=== PATIENT | male | born 1960 | race Caucasian/White ===

== ENCOUNTER 2017-10-14 14:29 | Inpatient (IN) | payer OTHER ==
[~2017-10-14] VITALS: Ht 182.9 cm; Wt 138.4 kg
[~2017-10-14 14:29] MED LIST: DIAZ5TAB3 PO; DOCU-94 PO; GUAIFENESIN 600 MG TABCR PO PRN; LSN/2025 PO; OXYC-643 PO
--- NOTE | 2017-10-14 15:32 | EMERGENCY ROOM VISIT NOTE ---
History Report prepared by Rod: Stephon Gordon Under the Supervision of: Dr. Pro Coe D.O. First contact with patient: 15:19 Chief Complaint: SHORTNESS OF BREATH Stated Complaint: CANT BREATH, VERY DIZZY Nursing Triage Summary: Expiratory wheezes with forceful exhale. History of Present Illness The patient is a 57 year old male who presents to the Emergency Room with complaints of persistent shortness of breath and chest discomfort that began about 2 weeks ago. The patient describes his chest discomfort as "tightness" across his chest. The shortness of breath is worsened with walking/exertion. The patient has also been experiencing a persistent cough that makes him feel very short of breath. The patient did go to the [place] [facility] 2 weeks ago and had a chest x-ray/CT scan performed. These were both unremarkable. He does have a history of DVT in the upper extremity from a PICC line. Source of History: patient Onset: 2 weeks ago Position: chest Quality: other ("tightness" ) Timing: constant Modifying Factors (Worsening): exertion (walking) Associated Symptoms: + cough Review of Systems See HPI for pertinent positives & negatives. A total of 10 systems reviewed and were otherwise negative. Past Medical & Surgical Medical Problems: (1) DVT (deep venous thrombosis) (2) Pulmonary embolism (3) Respiratory failure with hypoxia Surgical Problems: (1) History of hand surgery Family History FH: HTN (hypertension) FH: diabetes mellitus FH: lung disease FH: seizures FHx: heart disease FHx: kidney disease Social History Smoking Status: Former Smoker Alcohol Use: none Drug Use: none Marital Status: Housing Status: lives with significant other Occupation Status: employed Current/Historical Medications Scheduled Ascorbic Acid (Vitamin C), 1,000 MG PO QAM Cholecalciferol (Vitamin D 1000 Unit), 2,000 INTER.UNIT PO BID Ropinirole (Requip), 3 MG PO HS Scheduled PRN Guaifenesin Ext Rel (Mucinex Ext Rel), 600 MG PO Q12 PRN for Cough Ibuprofen Tab (Advil), 400 MG PO Q6 PRN for Headache or Pain Allergies Coded Allergies: Nitroglycerin (Verified Adverse Reaction, Severe, "codes to medication in the past", 12/29/14) Physical Exam Vital Signs Date Time Temp Pulse Resp B/P (MAP) Pulse Ox O2 Delivery O2 Flow Rate FiO2 10/14/17 18:12 Room Air 10/14/17 17:42 95 3.0 10/14/17 17:34 86 22 124/68 88 Room Air 10/14/17 17:21 92 Room Air 10/14/17 17:21 92 Room Air 10/14/17 16:10 84 20 127/74 91 Room Air 10/14/17 15:57 87 10/14/17 14:36 97 Room Air 10/14/17 14:32 37.1 88 20 167/95 97 Room Air Physical Exam GENERAL: Patient is awake, alert, and in no acute distress. Patient is resting comfortably and showing no signs of anxiety EYES: The conjunctivae are clear. The pupils are round and reactive. EARS, NOSE, MOUTH AND THROAT: The nose is without any evidence of any deformity. Mucous membranes are moist tongue is midline NECK: The neck is nontender and supple. RESPIRATORY: Normal respiratory effort is noted there is no evidence of wheezing rhonchi or rales CARDIOVASCULAR: Regular rate and rhythm noted there no murmurs rubs or gallops normal S1 normal S2 GASTROINTESTINAL: The abdomen is soft. Bowel sounds are present in all quadrants. Abdomen is nontender MUSCULOSKELETAL/EXTREMITIES: There is no evidence of gross deformity full range of motion is noted in the hips and shoulders SKIN: There is no obvious evidence of any rash. There are no petechiae, pallor or cyanosis noted. NEUROLOGIC: Patient is awake alert and oriented x3 Medical Decision & Procedures ER Provider Diagnostic Interpretation: Radiology results as stated below per my review and radiologist interpretation: CHEST ONE VIEW PORTABLE HISTORY: 57 years-old Male EVALUATE RESPIRATORY DISTRESS.DYSPNEA acute respiratory distress COMPARISON: Chest radiograph 12/10/2014 TECHNIQUE: Portable AP view of the chest FINDINGS: Cardiomediastinal and hilar silhouettes are within normal limits. Atherosclerosis of the aorta. No pneumothorax, pleural effusion, focal airspace consolidation or overt pulmonary edema. Degenerative changes are seen within the shoulders and spine. IMPRESSION: No acute process. The above report was generated using voice recognition software. It may contain grammatical, syntax or spelling errors. Electronically signed by: Cory Murillo M.D. 10/14/2017 3:50 PM Dictated Date/Time: 10/14/2017 3:47 PM Laboratory Results 10/14/17 15:58 Red Blood Count 6.32, Mean Corpuscular Volume 61.9, Mean Corpuscular Hemoglobin 20.1, Mean Corpuscular Hemoglobin Concent 32.5, Mean Platelet Volume 9.5, Neutrophils (%) (Auto) 78.8, Lymphocytes (%) (Auto) 8.1, Monocytes (%) (Auto) 8.0, Eosinophils (%) (Auto) 3.3, Basophils (%) (Auto) 0.9, Neutrophils # (Auto) 6.13, Lymphocytes # (Auto) 0.63, Monocytes # (Auto) 0.62, Eosinophils # (Auto) 0.26, Basophils # (Auto) 0.07 10/14/17 15:58 Test 10/14/17 15:58 10/14/17 16:00 White Blood Count 7.78 K/uL (4.8-10.8) Red Blood Count 6.32 M/uL (4.7-6.1) Hemoglobin 12.7 g/dL (14.0-18.0) Hematocrit 39.1 % (42-52) Mean Corpuscular Volume 61.9 fL (80-100) Mean Corpuscular Hemoglobin 20.1 pg (25-34) Mean Corpuscular Hemoglobin Concent 32.5 g/dl (32-36) Platelet Count 251 K/uL (130-400) Mean Platelet Volume 9.5 fL (7.4-10.4) Neutrophils (%) (Auto) 78.8 % Lymphocytes (%) (Auto) 8.1 % Monocytes (%) (Auto) 8.0 % Eosinophils (%) (Auto) 3.3 % Basophils (%) (Auto) 0.9 % Neutrophils # (Auto) 6.13 K/uL (1.4-6.5) Lymphocytes # (Auto) 0.63 K/uL (1.2-3.4) Monocytes # (Auto) 0.62 K/uL (0.11-0.59) Eosinophils # (Auto) 0.26 K/uL (0-0.5) Basophils # (Auto) 0.07 K/uL (0-0.2) RDW Standard Deviation 35.5 fL (36.4-46.3) RDW Coefficient of Variation 16.2 % (11.5-14.5) Immature Granulocyte % (Auto) 0.9 % Immature Granulocyte # (Auto) 0.07 K/uL (0.00-0.02) Polychromasia 1+ Microcytosis PRESENT Prothrombin Time 9.7 SECONDS (9.0-12.0) Prothromb Time International Ratio 0.9 (0.9-1.1) Activated Partial Thromboplast Time 24.3 SECONDS (21.0-31.0) Partial Thromboplastin Ratio 0.9 Venous Blood pH 7.36 (7.36-7.41) Venous Blood Partial Pressure CO2 56 mmHg (38.0-50.0) Venous Blood Partial Pressure O2 33 mmHg Venous Blood HCO3 31 mmol/L Venous Blood Oxygen Saturation < 60.0 % Venous Blood Base Excess 4.1 mEq/L Anion Gap 5.0 mmol/L (3-11) Est Creatinine Clear Calc Drug Dose 124.5 ml/min Estimated GFR () 102.6 Estimated GFR (Non- 88.5 BUN/Creatinine Ratio 14.5 (10-20) Calcium Level 8.5 mg/dl (8.5-10.1) Total Bilirubin 0.4 mg/dl (0.2-1) Aspartate Amino Transf (AST/SGOT) 26 U/L (15-37) Alanine Aminotransferase (ALT/SGPT) 49 U/L (12-78) Alkaline Phosphatase 62 U/L (45-117) Troponin I < 0.015 ng/ml (0-0.045) Pro-B-Type Natriuretic Peptide 41 pg/ml (0-900) Total Protein 7.3 gm/dl (6.4-8.2) Albumin 3.6 gm/dl (3.4-5.0) Globulin 3.7 gm/dl (2.5-4.0) Albumin/Globulin Ratio 1.0 (0.9-2) Urine Color YELLOW Urine Appearance CLEAR (CLEAR) Urine pH 6.0 (4.5-7.5) Urine Specific [place] 1.015 (1.000-1.030) Urine Protein NEG (NEG) Urine Glucose (UA) NEG (NEG) Urine Ketones NEG (NEG) Urine Occult Blood NEG (NEG) Urine Nitrite NEG (NEG) Urine Bilirubin NEG (NEG) Urine Urobilinogen NEG (NEG) Urine Leukocyte Esterase NEG (NEG) Laboratory results per my review. Medications Administered Medications (Trade) Dose Ordered Sig/Trey Route Start Time Stop Time Status Last Admin Dose Admin Albuterol/ Ipratropium (Duoneb) 3 ml NOW STAT INH 10/14/17 18:17 10/14/17 18:18 DC 10/14/17 19:04 3 ML Acetaminophen (Tylenol Tab) 1,000 mg NOW STAT PO 10/14/17 18:26 10/14/17 18:27 DC 10/14/17 19:04 1,000 MG ECG Per My Interpretation Indication: SOB/dyspnea Rate (beats per minute): 86 Rhythm: sinus rhythm Findings: other (No PVCs, No MARGARITA/STD) Comparison ECG Date: 03/21/2015 Change: no significant change ED Course 1524: The patient was evaluated in room C8. A complete history and physical examination were performed. 1817: I discussed the case with Dr. Lexus CLEVELAND Hospitalist. He will evaluate the patient for further treatment. Medical Decision Differential diagnosis: Etiologies such as infections, reactive airway disease, pneumonia, pneumothorax , COPD, CHF, cardiac ischemia, pulmonary embolism, musculoskeletal, gastrointestinal, as well as others were entertained. Nursing notes reviewed. Patient's records from [facility] emergency department visit were also reviewed. The patient is a 57-year-old male who presented to the emergency department for an evaluation of worsening shortness of breath. The patient has a history of his obstructive sleep apnea. He is currently not using his CPAP machine. The patient has been having worsening shortness of breath symptoms over the last few weeks. The patient was found to have hypoxia at rest as well as with exertion. He was treated with a DuoNeb treatment in the emergency department. I discussed the patient's laboratory and radiographic studies with him. He was found to have a previous visit within the last 10 days that did have a normal CT the chest with no venous thromboembolic disease noted. I discussed patient' s condition with the on-call [facility] hospitalist. They have agreed to evaluate the patient in the emergency department for further management and disposition. The patient was treated with supplemental oxygen. On supplemental oxygen his oxygen saturation was acceptable. Medication Reconcilliation Current Medication List: was personally reviewed by me Blood Pressure Screening Patient's blood pressure: Normal blood pressure Consults Time Called: 1811 Consulting Physician: Dr. Lexus Grigsby Returned Call: 1817 I discussed the case with Dr. Moustafa Maksim - [facility] Hospitalist. He will evaluate the patient for further treatment. Impression Primary Impression: SOB (shortness of breath) Additional Impressions: Obstructive sleep apnea Hypoxia Scribe Attestation The scribe's documentation has been prepared under my direction and personally reviewed by me in its entirety. I confirm that the note above accurately reflects all work, treatment, procedures, and medical decision making performed by me. Departure Information Dispostion Being Evaluated By Hospitalist Referrals Praveen Kellogg (PCP) Patient Instructions My [facility] Health Problem Qualifiers
--- NOTE | 2017-10-14 15:51 | DIAGNOSTIC IMAGING REPORT ---
CHEST ONE VIEW PORTABLE HISTORY: 57 years-old Male EVALUATE RESPIRATORY DISTRESS.DYSPNEA acute respiratory distress COMPARISON: Chest radiograph 12/10/2014 TECHNIQUE: Portable AP view of the chest FINDINGS: Cardiomediastinal and hilar silhouettes are within normal limits. Atherosclerosis of the aorta. No pneumothorax, pleural effusion, focal airspace consolidation or overt pulmonary edema. Degenerative changes are seen within the shoulders and spine. IMPRESSION: No acute process. The above report was generated using voice recognition software. It may contain grammatical, syntax or spelling errors. Electronically signed by: Cory Murillo M.D. 10/14/2017 3:50 PM Dictated Date/Time: 10/14/2017 3:47 PM
[2017-10-14 16:07] LABS: BASO % 0.9 %; BASO ABS # 0.07 K/uL (0-0.2); EOS % 3.3 %; EOS ABS # 0.26 K/uL (0-0.5); HEMATOCRIT 39.1 % (42-52); HEMOGLOBIN 12.7 g/dL (14.0-18.0); IG# 0.07 K/uL (0.00-0.02); LYMPH % 8.1 %; LYMPH ABS # 0.63 K/uL (1.2-3.4); MEAN CELL VOLUME 61.9 fL (80-100); MEAN CORPUSCULAR HEMOGLOBIN 20.1 pg (25-34); MEAN CORPUSCULAR HGB CONC 32.5 g/dl (32-36); MEAN PLATELET VOLUME 9.5 fL (7.4-10.4); MONO ABS # 0.62 K/uL (0.11-0.59); NEUT % 78.8 %; NEUT ABS # 6.13 K/uL (1.4-6.5); PLATELET COUNT 251 K/uL (130-400); RED CELL DISTRIBUTION WIDTH CV 16.2 % (11.5-14.5); RED CELL DISTRIBUTION WIDTH SD 35.5 fL (36.4-46.3); WHITE BLOOD COUNT 7.78 K/uL (4.8-10.8)
[2017-10-14 16:17] LABS: INR 0.9 (0.9-1.1); PTT PATIENT 24.3 SECONDS (21.0-31.0)
[2017-10-14 16:35] LABS: ALBUMIN 3.6 gm/dl (3.4-5.0); ALT/SGPT 49 U/L (12-78); BLOOD UREA NITROGEN 14 mg/dl (7-18); CALCIUM 8.5 mg/dl (8.5-10.1); CARBON DIOXIDE 31 mmol/L (21-32); CREATININE 0.95 mg/dl (0.60-1.40); GLUCOSE 89 mg/dl (70-99); POTASSIUM 3.9 mmol/L (3.5-5.1); SODIUM 138 mmol/L (136-145)
[2017-10-14 16:40] LABS: ALKALINE PHOSPHATASE 62 U/L (45-117); AST/SGOT 26 U/L (15-37); TOTAL PROTEIN 7.3 gm/dl (6.4-8.2)
[2017-10-14] MEDS ORDERED: GUAI1TAB55 PO (16:44)
[2017-10-14] MEDS ORDERED: CHOL100027 PO (16:44)
[2017-10-14] MEDS ORDERED: IBUP-103 PO (16:44)
[2017-10-14] MEDS ORDERED: ASCO1CAP3 PO (17:52)
[2017-10-14] MEDS ORDERED: ROPI3TAB PO (17:52)
[2017-10-14] MEDS ORDERED: ALBUT/IPRATROP 3MG/0.5MG NEB 3 ML VIAL INH STA (18:17)
[2017-10-14] MEDS ORDERED: ACETAMINOPHEN 500 MG TAB PO STA (18:26)
[2017-10-14] MEDS ORDERED: ONDANSETRON INJ 2 MG/ML 2 ML VIAL IV PRN (19:15)
[2017-10-14] MEDS ORDERED: ALUMINUM/MAGNESIUM/SIMETH (MAALOX MAX) 30 ML UDC PO PRN (19:15)
[2017-10-14] MEDS ORDERED: ZOLPIDEM TARTRATE 5 MG TAB PO PRN ×2 (19:15)
[2017-10-14] MEDS ORDERED: POLYETHYLENE (MIRALAX) 17 GM PACK PO PRN (19:15)
[2017-10-14] MEDS ORDERED: ACETAMINOPHEN 325 MG TAB PO PRN (19:15)
[2017-10-14] MEDS ORDERED: MAGNESIUM HYDROXIDE SUSP 30 ML UDC PO PRN (19:15)
--- NOTE | 2017-10-14 19:37 | History and Physical ---
History & Physical Date & Time of Service: Oct 14, 2017 at 19:25 Chief Complaint: Cant Breath, Very Dizzy Primary Care Physician: Praveen Kellogg History of Present Illness Source: patient, family, hospital records 57-year-old man with no significant past medical history except for severe obstructive sleep apnea untreated as he is still waiting to get his BiPAP machine. He also has remote history of smoking. Patient started having shortness of breath and intermittent wheezing about 1 month ago. He also had cough and upper respiratory tract and congestion. His stated that intermittently he can fall asleep while he is sitting or talking. He snores very loudly at night and has episodes of apnea while he is sleeping. 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 He had to bump some mechanical gas into the engine that flared his shortness of breath significantly and wheezing. He went to [place] ED and extensive workup was done there including CT angiogram that ruled out pulmonary embolism. It showed thickened bronchial rodriguez. Patient then was discharged from the ED there home and continued to have progressively worsened shortness of breath. Yesterday and today his cough started producing greenish and yellowish sputum. He came to the ED for evaluation and he was found to have an oxygen saturation of 88% on room air. All his record was faxed from [place] and was reviewed. Associated symptoms are severe headache and tightness in the chest while he is having the shortness of breath which is much worse on exertion. Past medical history significant for obstructive sleep apnea, history of DVT as a result of a PICC line in his upper extremity, morbid obesity and remote history of smoking. Quit smoking 30 years ago currently chews tobacco Past Medical/Surgical History Medical Problems: (1) DVT (deep venous thrombosis) (2) DVT (deep venous thrombosis) (3) GI bleed (4) HTN (hypertension) (5) Pulmonary embolism (6) Respiratory failure with hypoxia Surgical Problems: (1) History of hand surgery Family History FH: HTN (hypertension) FH: diabetes mellitus FH: lung disease FH: seizures FHx: heart disease FHx: kidney disease Social History Smoking Status: Former Smoker Drug Use: none Marital Status: Occupational Status: employed Allergies Coded Allergies: Nitroglycerin (Verified Adverse Reaction, Severe, "codes to medication in the past", 12/29/14) Home Medications Scheduled Ascorbic Acid (Vitamin C), 1,000 MG PO QAM Cholecalciferol (Vitamin D 1000 Unit), 2,000 INTER.UNIT PO BID Ropinirole (Requip), 3 MG PO HS Scheduled PRN Guaifenesin Ext Rel (Mucinex Ext Rel), 600 MG PO Q12 PRN for Cough Ibuprofen Tab (Advil), 400 MG PO Q6 PRN for Headache or Pain Review of Systems Review of system Constitutional: No fever / no chills / no sweats / no weakness / no fatigue Eyes: no blurring of vision / no eye pain / no discharge / no redness ENT: no hearing loss / no epistaxis /no swallowing problems Respiratory: Severe shortness of breath mainly exertional, positive for wheezing , positive for productive cough Cardiovascular: no Chest pain / no lower extremity edema / no palpitation Abdomen: no pain / no nausea / no vomiting / no constipation Musculoskeletal: no joint pain / no muscle pain / no joint swelling Genitourinary: no dysuria / no incontinence / no urinary retention Neurologic: no focal weakness / no numbness/tingling / no ataxia Psychiatric: no depression symptoms / no anxiety / no insomnia Endocrine: no excessive thirst / no excessive urination Hematologic: no abnormal bleeding / no bruising / no LN swelling Skin: No rash / no pallor Physical Exam Vital Signs Date Time Temp Pulse Resp B/P (MAP) Pulse Ox O2 Delivery O2 Flow Rate FiO2 10/14/17 18:12 Room Air 10/14/17 17:42 95 3.0 10/14/17 17:34 86 22 124/68 88 Room Air 10/14/17 17:21 92 Room Air 10/14/17 17:21 92 Room Air 10/14/17 16:10 84 20 127/74 91 Room Air 10/14/17 15:57 87 10/14/17 14:36 97 Room Air 10/14/17 14:32 37.1 88 20 167/95 97 Room Air Physical examination General patient appears to be comfortable, not in acute distress, morbidly obese HEENT: Atraumatic , normocephalic /no jaundice /no pallor /anicteric /no dry mucous membrane /normal external ear inspection Neck: Supple /no swelling /central trach Heart: S1/S2 normal/regular rate and rhythm/no gallop /no rub /no murmur Lungs: Decreased air entry bilaterally, bilateral wheezing and scattered rhonchi. Abdomen: Soft/nontender/no guarding/no rebound/no organomegaly/no pulsatile mass Musculoskeletal: No swelling/no edema/no tenderness/normal range of motion Neuro exam: Awake alert oriented 3/cranial nerves II through XII appear to be intact/sensation intact/moves all extremities/no abnormal movements Psychiatric evaluation: No depressed mood/normal affect Skin: No rash on exposed skin area/no erythema Extremity: Normal pulse/no pitting edema/no clubbing or cyanosis Endocrine/lymphatic: No obvious lymphadenopathy /no lymphedema Diagnostics Laboratory Results Results Past 24 Hours Test 10/14/17 15:58 10/14/17 16:00 Range/Units White Blood Count 7.78 4.8-10.8 K/uL Red Blood Count 6.32 4.7-6.1 M/uL Hemoglobin 12.7 14.0-18.0 g/dL Hematocrit 39.1 42-52 % Mean Corpuscular Volume 61.9 80-100 fL Mean Corpuscular Hemoglobin 20.1 25-34 pg Mean Corpuscular Hemoglobin Concent 32.5 32-36 g/dl Platelet Count 251 130-400 K/uL Mean Platelet Volume 9.5 7.4-10.4 fL Neutrophils (%) (Auto) 78.8 % Lymphocytes (%) (Auto) 8.1 % Monocytes (%) (Auto) 8.0 % Eosinophils (%) (Auto) 3.3 % Basophils (%) (Auto) 0.9 % Neutrophils # (Auto) 6.13 1.4-6.5 K/uL Lymphocytes # (Auto) 0.63 1.2-3.4 K/uL Monocytes # (Auto) 0.62 0.11-0.59 K/uL Eosinophils # (Auto) 0.26 0-0.5 K/uL Basophils # (Auto) 0.07 0-0.2 K/uL RDW Standard Deviation 35.5 36.4-46.3 fL RDW Coefficient of Variation 16.2 11.5-14.5 % Immature Granulocyte % (Auto) 0.9 % Immature Granulocyte # (Auto) 0.07 0.00-0.02 K/uL Polychromasia 1+ Microcytosis PRESENT Prothrombin Time 9.7 9.0-12.0 SECONDS Prothromb Time International Ratio 0.9 0.9-1.1 Activated Partial Thromboplast Time 24.3 21.0-31.0 SECONDS Partial Thromboplastin Ratio 0.9 Venous Blood pH 7.36 7.36-7.41 Venous Blood Partial Pressure CO2 56 38.0-50.0 mmHg Venous Blood Partial Pressure O2 33 mmHg Venous Blood HCO3 31 mmol/L Venous Blood Oxygen Saturation < 60.0 % Venous Blood Base Excess 4.1 mEq/L Sodium Level 138 136-145 mmol/L Potassium Level 3.9 3.5-5.1 mmol/L Chloride Level 102 98-107 mmol/L Carbon Dioxide Level 31 21-32 mmol/L Anion Gap 5.0 3-11 mmol/L Blood Urea Nitrogen 14 7-18 mg/dl Creatinine 0.95 0.60-1.40 mg/dl Est Creatinine Clear Calc Drug Dose 124.5 ml/min Estimated GFR () 102.6 Estimated GFR (Non- 88.5 BUN/Creatinine Ratio 14.5 10-20 Random Glucose 89 70-99 mg/dl Calcium Level 8.5 8.5-10.1 mg/dl Total Bilirubin 0.4 0.2-1 mg/dl Aspartate Amino Transf (AST/SGOT) 26 15-37 U/L Alanine Aminotransferase (ALT/SGPT) 49 12-78 U/L Alkaline Phosphatase 62 45-117 U/L Troponin I < 0.015 0-0.045 ng/ml Pro-B-Type Natriuretic Peptide 41 0-900 pg/ml Total Protein 7.3 6.4-8.2 gm/dl Albumin 3.6 3.4-5.0 gm/dl Globulin 3.7 2.5-4.0 gm/dl Albumin/Globulin Ratio 1.0 0.9-2 Urine Color YELLOW Urine Appearance CLEAR CLEAR Urine pH 6.0 4.5-7.5 Urine Specific [place] 1.015 1.000-1.030 Urine Protein NEG NEG Urine Glucose (UA) NEG NEG Urine Ketones NEG NEG Urine Occult Blood NEG NEG Urine Nitrite NEG NEG Urine Bilirubin NEG NEG Urine Urobilinogen NEG NEG Urine Leukocyte Esterase NEG NEG Diagnostic Radiology CTA was reviewed done at [place] 10 days ago showed bronchial wall thickening no pulmonary embolus Impression Assessment and Plan 57-year-old man with past medical history of upper extremity DVT secondary to PICC line, morbid obesity, severe obstructive sleep apnea untreated, remote history of tobacco abuse. Presented to the ED with progressive shortness of breath and productive cough. Assessment Acute respiratory failure with hypoxemia secondary to below Multifactorial pulmonary disease, COPD exacerbation new diagnosis, obesity hypoventilation syndrome, severe obstructive sleep apnea with suspected pulmonary hypertension Subacute bacterial bronchitis Morbid obesity History of passing out last was 1 year ago daytime somnolence secondary to obstructive sleep apnea Plan Admit patient to telemetry Start patient on bronchodilators, Xopenex/Atrovent 0.63 inhalation nebulizer 4 times daily Start patient on steroids, Solu-Medrol 60 mg IV every 6 hours Chest imaging reviewed, showed no active pneumonia but likely bacterial bronchitis EKG reviewed, no QTc prolongation, will start patient on azithromycin 500 mg IV daily which will have also anti-inflammatory benefit for COPD Add probiotic for C. difficile prevention Pulmonary consultation if no improvement as needed Pepcid for GI prophylaxis Heparin subcu for DVT prophylaxis We will order nocturnal pulse ox monitoring Patient will need pulmonary function test in 6 weeks after resolution Resuscitation Status VTE Prophylaxis Will order VTE Prophylaxis: Yes
[2017-10-14 20:30] VITALS: BP 155/82; PULSE 84; TEMP 36.9; O2SAT 95; Ht 182.9 cm; Wt 138.4 kg
[2017-10-14] MEDS ORDERED: LEVALBUTEROL/IPRATROPIUM NEB INH SCH (21:00)
[2017-10-14] MEDS: AZITHROMYCIN IV 500 MG in DEXTROSE 5% 250ML 250 ML IV SCH (21:22)
[2017-10-14] MEDS: METHYLPREDNISOLONE IV 60 MG in SYRINGE 0 ML IV SCH (21:22)
[2017-10-14] MEDS: ROPINIROLE HCL 1 MG TAB PO SCH (21:23)
[2017-10-14 21:35] VITALS: PULSE 86; O2SAT 95
[2017-10-14] MEDS: IPRATROPIUM BROMIDE NEB SOLN 0.02% 2.5 ML VIAL INH SCH (21:35)
[2017-10-14] MEDS: LEVALBUTEROL 0.63MG/3 ML NEB INH SCH (21:35)
[2017-10-14] MEDS: HEPARIN SOD 5000 UNIT/0.5 ML CARP SQ SCH (22:02)
[2017-10-14 23:53] VITALS: BP 107/69; PULSE 77; TEMP 36.3; O2SAT 90
[2017-10-15] VITALS (13 sets, daily range): BP systolic 109–169; BP diastolic 65–98; PULSE 71–99; TEMP 35.8–37.4; O2SAT 90–99
[2017-10-15] MEDS ORDERED: PNEUMOCOCCAL POLYSACCHARIDES 25 MCG/0.5 ML VIAL/SYR IM. ONE (00:30)
[2017-10-15] MEDS ORDERED: PNEUMOCOCCAL ADMINISTRATION CHARGE ONE (00:30)
[2017-10-15] MEDS ORDERED: INFLUENZA ADMINISTRATION CHARGE ONE (00:30)
[2017-10-15] MEDS ORDERED: INFLUENZA VIRUS QUAD VACCINE 0.5 ML SYR IM. ONE (00:30)
[2017-10-15] MEDS: METHYLPREDNISOLONE IV 60 MG in SYRINGE 0 ML IV SCH ×4 (02:49→20:37)
[2017-10-15] MEDS: HEPARIN SOD 5000 UNIT/0.5 ML CARP SQ SCH ×3 (05:50→20:38)
[2017-10-15] MEDS: LEVALBUTEROL 0.63MG/3 ML NEB INH SCH ×3 (06:59→20:49)
[2017-10-15] MEDS: IPRATROPIUM BROMIDE NEB SOLN 0.02% 2.5 ML VIAL INH SCH ×3 (06:59→20:49)
[2017-10-15] MEDS: BUDESONIDE 0.5 MG/2 ML VIAL (PULMICORT) INH SCH ×2 (06:59→20:49)
[2017-10-15 07:21] LABS: BASO % 0.8 %; BASO ABS # 0.05 K/uL (0-0.2); HEMATOCRIT 38.5 % (42-52); HEMOGLOBIN 12.6 g/dL (14.0-18.0); IG# 0.04 K/uL (0.00-0.02); LYMPH ABS # 0.45 K/uL (1.2-3.4); MEAN CELL VOLUME 61.3 fL (80-100); MEAN CORPUSCULAR HEMOGLOBIN 20.1 pg (25-34); MEAN CORPUSCULAR HGB CONC 32.7 g/dl (32-36); MEAN PLATELET VOLUME 9.2 fL (7.4-10.4); MONO % 1.7 %; MONO ABS # 0.11 K/uL (0.11-0.59); NEUT % 89.9 %; NEUT ABS # 5.74 K/uL (1.4-6.5); PLATELET COUNT 251 K/uL (130-400); RED CELL DISTRIBUTION WIDTH CV 16.3 % (11.5-14.5); RED CELL DISTRIBUTION WIDTH SD 34.9 fL (36.4-46.3); WHITE BLOOD COUNT 6.39 K/uL (4.8-10.8)
[2017-10-15 07:57] LABS: ALBUMIN 3.5 gm/dl (3.4-5.0); CREATININE 0.85 mg/dl (0.60-1.40)
[2017-10-15 08:00] LABS: TOTAL PROTEIN 7.3 gm/dl (6.4-8.2)
[2017-10-15 09:26] LABS: HEMOGLOBIN A1C 5.8 % (4.5-5.6)
[2017-10-15] MEDS ORDERED: PERFLUTREN LIPID MICROSPHERE (DEFINITY) IV ONE (13:34)
--- NOTE | 2017-10-15 14:31 | ECHOCARDIOGRAM REPORT ---
*NOTICE TO RECEIVING [employer] This information is strictly Confidential and protected under [place] law. [place] law prohibits you from making any further disclosure of this information unless further disclosure is expressly permitted by the written consent of the person to whom it pertains or is authorized by law. A general authorization for the release of medical or other information is not sufficient for this purpose. Hospital accepts no responsibility if the information is made available to any other person, INCLUDING THE PATIENT. Interpretation Summary * Name: BONG GORDON Study Date: 10/15/2017 12:52 PM BP: 169/79 mmHg * Patient Location: .MED\S\N275\S\2 HR: 93 * : 1960 (M/d/yyyy) Gender: Male Height: 72 in * Age: 57 yrs Ethnicity: CA Weight: 303 lb * Ordering Physician: Boubacar Prescott * Referring Physician: Self, Referred * Performed By: Nel Carlos RDCS * * Reason For Study: CHF * BSA: 2.5 m2 * -- Conclusions -- * 1. Left ventricle not well visualized. Left ventricle appears grossly normal in size with grossly normal systolic function. Cannot estimate EF. There are no visualized wall motion abnormalities, but cannot exclude wall motion abnormalities given poor image quality. No significant left ventricular hypertrophy visualized. No apical thrombus visualized. * 2. Right ventricle appears dilated when visualized. * 3. Valves were not well visualized. No aortic stenosis. * 4. Poor image quality, somewhat enhanced with IV Definity. * 5. No prior study available for comparison. Procedure Details * A contrast injection of Definity was performed to improve assessment of LV function. * Contrast was injected into an intravenous site in the left arm. * One vial of Definity ultrasound contrast was diluted in normal saline to a total volume of 10 ml. A total of '2' ml of solution was administered during imaging. * Lot # [id number] of Definity utilized for procedure. * Expiration date 1 SEP 13. * The attending nurse who injected the contrast agent was JG HAMPTON RN. Left Ventricle * Left ventricle not well visualized. Left ventricle appears grossly normal in size with grossly normal systolic function. Cannot estimate EF. There are no visualized wall motion abnormalities, but cannot exclude wall motion abnormalities given poor image quality. No significant left ventricular hypertrophy visualized. No apical thrombus visualized. Right Ventricle * The right ventricle is not well visualized. * Right ventricle appears dilated when visualized. Atria * The left atrium is not well visualized. * Right atrium not well visualized. Mitral Valve * The mitral valve is not well visualized. * There is no mitral valve stenosis. * Significant mitral regurgitation is absent. Tricuspid Valve * The tricuspid valve is not well visualized. Aortic Valve * The aortic valve is not well visualized. * No hemodynamically significant valvular aortic stenosis. * There is no significant aortic regurgitation. Pulmonic Valve * The pulmonary valve is inadequately visualized, but the Doppler data is adequate for interpretation. * There is no pulmonic valvular stenosis. * There is no significant pulmonary regurgitation. Great Vessels * The aortic root is normal size. Pericardium/Pleural * There is no pericardial effusion. Great Vessels * IVC not well visualized. MMode 2D Measurements and Calculations LVIDd 5.0 cm EDV(Teich) 115.5 ml EDV(cubed) 121.3 ml Ao root diam 3.8 cm Ao root area 11.2 cm\S\2 asc Aorta Diam 3.3 cm Doppler Measurements and Calculations MV E max fatuma 70.8 cm/sec MV A max fatuma 100.4 cm/sec MV E/A 0.71 Ao V2 max 124.1 cm/sec Ao max PG 6.2 mmHg Ao max PG (full) 2.8 mmHg LV V1 max PG 3.4 mmHg LV V1 max 92.2 cm/sec
[2017-10-15] MEDS: ROPINIROLE HCL 1 MG TAB PO SCH (20:37)
[2017-10-15] MEDS: AZITHROMYCIN IV 500 MG in DEXTROSE 5% 250ML 250 ML IV SCH (20:37)
--- NOTE | 2017-10-15 21:38 | Progress Note ---
Subjective Date of Service: Oct 15, 2017. 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 consultant , review of inpatient medication list Pain: no pain PO Intake: adequate Voiding: no voiding problems patient reports feeling a little better today with Solu Medrol reviewed recent events, has been experiencing cough and shortness of breath for several weeks was in the [place] ED on 10/05, had CTA chest that showed diffuse interstitial changes, no PE, no consolidation, CXR without acute process, EKG with prolonged MT patient states that he has been short of breath for a long time, mostly on exertion says he has gained 20lbs over the past month, no edema noted more recently 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, two 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 co-workers have gone to the hospital for acute dyspnea he does not smoke, still chews tobacco he has never had PFT reviewed work up here, had normal CXR, EKG with sinus and 1st degree AV block on the monitor he had what appeared to be a rate induced bundle branch block checked echo, was essentially normal but had difficulty visualizing heart has sleep apnea but has not gotten his CPAP at home, had a sleep study months ago has been snoring for years has had several stress testes in the past, two heart caths, never needed a stent , CAD was 30-35% according to patient Problem List Medical Problems: (1) Hypoxia Status: Acute (2) Obstructive sleep apnea Status: Acute (3) SOB (shortness of breath) Status: Acute Review of Systems Constitutional: + weakness, + fatigue Respiratory: + cough, + sputum, + wheezing, + shortness of breath, + dyspnea on exertion, + problem reported (heavy snoring) Cardiac: No chest pain, No edema Musculoskeletal: + joint pain (diffuse, neck, lower back, bilateral shoulders) All Other Systems: Reviewed and Negative Medications Current Inpatient Medications Medications (Trade) Dose Ordered Sig/Trey Route Start Time Stop Time Status Last Admin Dose Admin Guaifenesin (Mucinex Contr Rel Tab) 600 mg Q12 PRN PO 10/14/17 08:45 11/13/17 08:44 Ropinirole HCl (Requip Tab) 3 mg HS PO 10/14/17 21:00 11/13/17 20:59 10/15/17 20:37 3 MG Heparin Sodium (Porcine) (Heparin Sq 5000 Unit/0.5ml) 5,000 unit Q8 SQ 10/14/17 22:00 11/13/17 21:59 10/15/17 20:38 5,000 UNIT Acetaminophen (Tylenol Tab) 650 mg Q4H PRN PO 10/14/17 19:15 11/13/17 19:14 Al Hydrox/Mg Hydrox/Simethicone (Maalox Max Susp) 15 ml Q4H PRN PO 10/14/17 19:15 11/13/17 19:14 Magnesium Hydroxide (Milk Of Magnesia Susp) 30 ml Q12H PRN PO 10/14/17 19:15 11/13/17 19:14 Zolpidem Tartrate (Ambien Tab) 5 mg HSZ PRN PO 10/14/17 19:15 11/13/17 19:14 Ondansetron HCl (Zofran Inj) 4 mg Q6H PRN IV 10/14/17 19:15 11/13/17 19:14 Polyethylene (Miralax Powder Packet) 17 gm DAILY PRN PO 10/14/17 19:15 11/13/17 19:14 Methylprednisolone Sodium Succinate 60 mg/Syringe 0.96 ml @ 1.5 mls/min Q6H IV 10/14/17 21:00 11/13/17 20:59 10/15/17 20:37 1.5 MLS/MIN Azithromycin 500 mg/Dextrose 255 ml @ 125 mls/hr Q24H IV 10/14/17 21:00 10/21/17 20:59 10/15/17 20:37 125 MLS/HR Ipratropium [place] (Atrovent 0.02% 0.5MG/2.5ML Neb) 0.5 mg Q6R INH 10/14/17 21:00 11/13/17 20:59 10/15/17 20:49 0.5 MG Levalbuterol (Xopenex 0.63 Mg/ 3 Ml Neb) 0.63 mg Q6R INH 10/14/17 21:00 11/13/17 20:59 10/15/17 20:49 0.63 MG Budesonide (Pulmicort Respules 0.5MG/ 2ML Neb Soln) 0.5 mg BIDR INH 10/15/17 08:00 11/14/17 07:59 10/15/17 20:49 0.5 MG Objective Vital Signs Date Time Temp Pulse Resp B/P (MAP) Pulse Ox O2 Delivery O2 Flow Rate FiO2 10/15/17 20:49 91 20 92 Room Air 10/15/17 19:47 35.8 99 20 135/69 (91) 93 Room Air 10/15/17 16:00 93 Room Air 10/15/17 14:34 95 18 93 Room Air 10/15/17 14:31 36.8 94 18 163/98 (119) 99 Room Air 10/15/17 12:02 96 Nasal Cannula 10/15/17 11:26 37.4 92 18 169/79 (109) 93 Room Air 10/15/17 08:01 96 Nasal Cannula 10/15/17 07:17 36.6 96 70 124/69 (87) 96 Nasal Cannula 1.0 10/15/17 06:59 71 18 94 Nasal Cannula 2.0 10/15/17 04:34 37.1 73 16 151/85 (107) 90 Nasal Cannula 1.0 10/15/17 04:00 90 Nasal Cannula 2.0 10/15/17 00:00 Room Air 10/14/17 23:53 36.3 77 16 107/69 (82) 90 Room Air 10/14/17 21:35 86 20 95 Room Air Physical Exam General Appearance: no apparent distress, + obese Eyes: normal inspection, EOMI, sclerae normal ENT: normal ENT inspection, hearing grossly normal, pharynx normal Neck: supple, no adenopathy, no JVD, trachea midline Respiratory/Chest: chest non-tender, lungs clear, normal breath sounds, no respiratory distress, no accessory muscle use Cardiovascular: regular rate, rhythm, no edema, no gallop, no JVD, no murmur Abdomen: normal bowel sounds, non tender, soft, no organomegaly Extremities: normal range of motion, non-tender, normal inspection, no pedal edema, no calf tenderness, normal capillary refill, pelvis stable Neurologic/Psychiatric: 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 nml as tested, no motor/sensory deficits, alert, normal mood/affect, oriented x 3 Skin: + pertinent finding (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) Laboratory Results Last 24 Hours Test 10/15/17 01:07 10/15/17 07:11 10/15/17 07:12 10/15/17 12:47 Troponin I < 0.015 ng/ml < 0.015 ng/ml < 0.015 ng/ml Sodium Level 135 mmol/L Potassium Level 4.0 mmol/L Chloride Level 100 mmol/L Carbon Dioxide Level 28 mmol/L Anion Gap 7.0 mmol/L Blood Urea Nitrogen 12 mg/dl Creatinine 0.85 mg/dl Est Creatinine Clear Calc Drug Dose 137.7 ml/min Estimated GFR () 112.1 Estimated GFR (Non- 96.7 BUN/Creatinine Ratio 13.8 Random Glucose 151 mg/dl Estimated Average Glucose 120 mg/dl Hemoglobin A1c 5.8 % Calcium Level 9.0 mg/dl Magnesium Level 2.3 mg/dl Total Bilirubin 0.5 mg/dl Aspartate Amino Transf (AST/SGOT) 24 U/L Alanine Aminotransferase (ALT/SGPT) 47 U/L Alkaline Phosphatase 57 U/L Total Protein 7.3 gm/dl Albumin 3.5 gm/dl Globulin 3.8 gm/dl Albumin/Globulin Ratio 0.9 White Blood Count 6.39 K/uL Red Blood Count 6.28 M/uL Hemoglobin 12.6 g/dL Hematocrit 38.5 % Mean Corpuscular Volume 61.3 fL Mean Corpuscular Hemoglobin 20.1 pg Mean Corpuscular Hemoglobin Concent 32.7 g/dl Platelet Count 251 K/uL Mean Platelet Volume 9.2 fL Neutrophils (%) (Auto) 89.9 % Lymphocytes (%) (Auto) 7.0 % Monocytes (%) (Auto) 1.7 % Eosinophils (%) (Auto) 0.0 % Basophils (%) (Auto) 0.8 % Neutrophils # (Auto) 5.74 K/uL Lymphocytes # (Auto) 0.45 K/uL Monocytes # (Auto) 0.11 K/uL Eosinophils # (Auto) 0.00 K/uL Basophils # (Auto) 0.05 K/uL RDW Standard Deviation 34.9 fL RDW Coefficient of Variation 16.3 % Immature Granulocyte % (Auto) 0.6 % Immature Granulocyte # (Auto) 0.04 K/uL Polychromasia 1+ Microcytosis PRESENT Lactic Acid Level 2.2 mmol/L Test 10/15/17 18:55 Troponin I < 0.015 ng/ml Assessment and Plan 57-year-old man with past medical history of upper extremity DVT secondary to PICC line, morbid obesity, severe obstructive sleep apnea untreated, remote history of tobacco abuse. Presented to the ED with progressive shortness of breath and productive cough. - Acute dyspnea on chronic dyspnea suspect acute bronchitis or asthma, does not carry a diagnosis of asthma or COPD because he has never had PFT breathing better since admission, lungs clear, minimal cough will continue Solu Medrol 60mg q6, taper tomorrow continue Azithromycin, needed 5 doses of 500mg continue Pulmicort, nebulizers no evidence of heart failure on echo or on exam no PE on CTA chest from 10/05 done in [place] ED possible that the fumes he inhaled triggered an asthma attack or bronchitis would benefit from PFT as outpatient once he recovers from this attack - LUIS: currently untreated, needs to get CPAP at home saw a sleep doctor in [place] - Morbid obesity: counseled on weight loss could have obesity hypoventilation - H/o non-obstructive CAD on prior cath no chest pain, no ischemia on EKG, troponin negative reassess tomorrow for discharge, he wants to go home for grandchild's birthday
[2017-10-16] MEDS: IPRATROPIUM BROMIDE NEB SOLN 0.02% 2.5 ML VIAL INH SCH ×2 (01:50→07:21)
[2017-10-16 01:51] VITALS: PULSE 73; O2SAT 94
[2017-10-16] MEDS: LEVALBUTEROL 0.63MG/3 ML NEB INH SCH ×2 (01:51→07:21)
[2017-10-16] MEDS: METHYLPREDNISOLONE IV 60 MG in SYRINGE 0 ML IV SCH ×2 (03:07→08:22)
[2017-10-16 04:05] VITALS: BP 134/75; PULSE 74; TEMP 36.5; O2SAT 98
[2017-10-16] MEDS: HEPARIN SOD 5000 UNIT/0.5 ML CARP SQ SCH (06:11)
[2017-10-16 07:12] VITALS: BP 151/97; PULSE 68; TEMP 36.6; O2SAT 92
[2017-10-16] MEDS: BUDESONIDE 0.5 MG/2 ML VIAL (PULMICORT) INH SCH (07:21)
[2017-10-16 07:23] VITALS: PULSE 77; O2SAT 96
[2017-10-16] MEDS ORDERED: AZIT500T26 PO (10:51)
[2017-10-16] MEDS ORDERED: GUAI1SOL5 PO (10:51)
[2017-10-16] MEDS ORDERED: PRD20 PO (10:51)
[2017-10-16] MEDS ORDERED: VNTHFA/IN INH (10:51)
--- NOTE | 2017-10-16 11:17 | Discharge Instructions ---
Discharge Instructions Date of Service Oct 16, 2017. Admission Reason for Admission: Respiratory Failure With Hypoxia Discharge Discharge Diagnosis / Problem: Acute bronchitis, bronchial pneumonia Discharge Goals Goal(s): Improve disease control, Diagnostic testing (need pulmonary function testing, may need to repeat outpatient sleep study) Activity Recommendations Activity Limitations: resume your previous activity . Instructions / Follow-Up Instructions / Follow-Up Medications: - PREDNISONE: start tomorrow, 60mg (three tablets) x 2 days, then 40mg daily x 4 days then 20mg daily x 4 days then 10mg (1/2 tablet) daily x 4 days - AZITHROMYCIN: 500mg tablet daily x 3 days - ALBUTEROL: inhalter, 2 puffs every 6 hours as needed for shortness of breath/ cough - CODEINE/GUAFENISINE: 10mL as needed for cough, especially at night if cough is problematic Acute shortness of breath, likely reactive airway disease due to inhaling fumes treating for bronchitis but possible asthma improved with steroids, Azithromycin complete treatment as described above ideally, you need to get pulmonary function testing in 6 weeks when your lung function is at baseline can follow up with [facility] for PFT and then possible follow up my nurse navigator will help schedule appointment, Sarah Neumann, her number is [phone] if you do not hear from her on Wednesday you can contact her directly on Wednesday Sleep apnea: on nocturnal desaturation study, you were less than 90% for 44% of the time you were < 85% for 12% of the time will arrange for home oxygen, 2L NC ideally you need to have CPAP set up if script is , contact sleep medicine physician to see if your need new script or new study untreated sleep apnea leads to pulmonary hypertension, difficult to treat hypertension FOLLOW UP - Dr. Kellogg, call for hospital follow up appointment in 5-7 days, he will get a copy of discharge summary - [facility] in several weeks for pulmonary function testing, appointment Current Hospital Diet Patient's current hospital diet: Regular Diet Discharge Diet Recommended Diet: Regular Diet Procedures Procedures Performed: Nocturnal desaturation study Pending Studies Studies pending at discharge: no Laboratory Results Hemoglobin A1c Test 10/15/17 07:11 Range/Units Estimated Average Glucose 120 mg/dl Hemoglobin A1c 5.8 H 4.5-5.6 % Medical Emergencies . Who to Call and When: Medical Emergencies: If at any time you feel your situation is an emergency, please call 911 immediately. . Non-Emergent Contact Non-Emergency issues call your: Primary Care Provider Call Non-Emergent contact if: you have any medication questions . . "Provider Documentation" section prepared by Boubacar Prescott. . [place] Drug Monitoring Program Search Results: no issues identified
[2017-10-16 12:13] VITALS: BP 151/97; PULSE 77; TEMP 36.6; O2SAT 96
--- NOTE | 2017-10-16 21:59 | Discharge Summary ---
Discharge Summary Date of Service Oct 16, 2017. Discharge Summary Admission Date: Oct 14, 2017 at 19:20 Discharge Date: Oct 16, 2017 Discharge Disposition: Home Principal Diagnosis: Acute hypoxic respiratory failure Problems/Secondary Diagnoses: Reactive airways disease, possible asthma Bronchitis, acute LUIS Obesity Procedures: Echocardiogram - preserved EF Consultations: none Medication Reconciliation New Medications: Albuterol Hfa (Ventolin Hfa) 200 Puffs/15110 Mcg Aers 2-4 PUFFS INH Q6H, #1 INHALER Azithromycin (Zithromax) 500 Mg Tab 500 MG PO DAILY, #3 TAB Guaifenesin-Codeine (Codeine/Guaifenesin 100-10 mg/5Ml) 1 Yessica Yessica 10 ML PO Q6 PRN for Cough, #240 ML 0 Refills Prednisone (Prednisone) 20 Mg Tab 60 MG PO UD for 14 Days, #20 TABS 0 Refills taper, 60mg daily x 2 days, 40mg daily x 4 days, 20mg daily x 4 days then 10mg daily x 4 days Continued Medications: Ascorbic Acid (Vitamin C) 500 Mg Cap 1000 MG PO QAM Cholecalciferol (Vitamin D 1000 Unit) 1,000 Unit Cap 2000 INTER.UNIT PO BID, CAP Guaifenesin Ext Rel (Mucinex Ext Rel) 600 Mg Tab 600 MG PO Q12 PRN for Cough, TAB Ibuprofen Tab (Advil) 200 Mg Tab 400 MG PO Q6 PRN for Headache or Pain, TAB Ropinirole (Requip) 3 Mg Tab 3 MG PO HS, TAB Discharge Exam Patient feeling better today, less dyspnea, less cough. He slept well last night with 2L nasal canula. Patient felt well enough to go home. Discussed treatment plan with he and his . Answered questions in regards to follow up, night time oxygen, getting CPAP, pulmonary function testing. Reviewed labs, all normal. Nocturnal desaturation study showed saturations <90 % for 44% of the time, < 85% for 12% of the time Review of Systems: Constitutional: No fever, No chills, No sweats, No weight loss, No weakness , No fatigue, No problem reported Eyes: No worsening of vision, No eye pain, No redness, No discharge, No diplopia, No problem reported ENT: No hearing loss, No unusual epistaxis, No nasal symptoms, No sore throat, No tinnitus, No dental problems, No trouble swallowing, No problem reported Respiratory: + cough, + dyspnea on exertion, No sputum, No wheezing, No shortness of breath, No dyspnea at rest, No hemoptysis, No problem reported Cardiovascular: No chest pain, No orthopnea, No PND, No edema, No claudication, No palpitations, No problem reported Abdomen: No pain, No nausea, No vomiting, No diarrhea, No constipation, No GI bleeding, No problem reported Musculoskeletal: No joint pain, No muscle pain, No swelling, No calf pain, No problem reported Genitourinary - Male: No hematuria, No dysuria, No urinary frequency, No urinary urgency Neurologic: No memory loss, No paralysis, No weakness, No numbness/tingling , No vertigo, No balance problems, No problem reported Psychiatric: No depression symptoms, No anhedonism, No anxiety, No insomnia , No substance abuse, No problem reported Endocrine: No fatigue, No excessive thirst, No excessive urination, No problem reported Hematologic / Lymphatic: No abnormal bleeding/bruising, No clotting problems , No swollen lymph nodes, No night sweats, No problem reported Integumentary: No rash, No itch, No new/changing skin lesions, No color change, No bleeding, No problem reported Physical Exam: General Appearance: no apparent distress, + obese Eyes: normal inspection, EOMI, sclerae normal ENT: normal ENT inspection, hearing grossly normal, pharynx normal Neck: supple, no adenopathy, no JVD, trachea midline Respiratory/Chest: chest non-tender, lungs clear, normal breath sounds, no respiratory distress, no accessory muscle use Cardiovascular: regular rate, rhythm, no edema, no gallop, no JVD, no murmur , normal peripheral pulses Abdomen / GI: normal bowel sounds, non tender, soft, no organomegaly Extremities: normal inspection, no calf tenderness, normal capillary refill , no pedal edema, normal range of motion, pelvis stable 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 Presented to the ED with progressive shortness of breath and productive cough. - Acute dyspnea on chronic dyspnea suspect acute bronchitis or asthma, does not carry a diagnosis of asthma or COPD because he has never had PFT breathing better since admission, lungs clear, minimal cough treated with Solu Medrol while inpatient will change to Prednisone 60mg x 2 days, 40mg x 4 days, 20mg x 4 days then 10mg x 4 days continue Azithromycin, needed 5 doses of 500mg, complete 3 more doses as outpatient Albuterol PRN Codeine and Guafenisine for cough suppression no evidence of heart failure on echo or on exam no PE on CTA chest from 10/05 done in [place] ED possible that the fumes he inhaled triggered an asthma attack or bronchitis would benefit from PFT as outpatient once he recovers from this attack recommend following up with [facility] in 6 weeks for PFT to determine if he has underlaying lung disease - LUIS: currently untreated, needs to get CPAP at home saw a sleep doctor in [place] but script for CPAP is a year old instructed him to call the office to see if he needs new study nocturnal desaturation study, qualifies for home oxygen CM made arrangements for 2L NC at night, to be delivered this evening told patient that he needs CPAP, using supplemental oxygen will be okay for now - Morbid obesity: counseled on weight loss could have obesity hypoventilation went over basic plan for losing weight by reducing calorie intake, exercise if possible - H/o non-obstructive CAD on prior cath no chest pain, no ischemia on EKG, troponin negative echo normal d/c to home, follow up with PCP, pulmonary Total Time Spent: Greater than 30 minutes This includes examination of the patient, discharge planning, medication reconciliation, and communication with other providers. Discharge Instructions Please refer to the electronic Patient Visit Report (Discharge Instructions) for additional information. Follow-Up Dr. Kellogg in one week Pulmonary for PFT in 6 weeks Additional Copies To Praveen Kellogg
== END 2017-10-16 12:54 | disposition home or self-care (01) | DRG 202 ==
LOC: C.EDB 14:30 → C.MED 19:20 → ENRESERV 19:35
PROVIDERS: ADMIT Internal Medicine; ATTEND Internal Medicine
DX: J20.9 Acute bronchitis, unspecified (principal); J96.01 Acute respiratory failure with hypoxia; Z68.41 Body mass index [BMI] 40.0-44.9, adult; E66.2 Morbid (severe) obesity with alveolar hypoventilation; J45.909 Unspecified asthma, uncomplicated; I25.10 Atherosclerotic heart disease of native coronary artery without angina pectoris; Z51.81 Encounter for therapeutic drug level monitoring; Z79.899 Other long term (current) drug therapy; Z86.718 Personal history of other venous thrombosis and embolism; Z86.711 Personal history of pulmonary embolism; Z87.891 Personal history of nicotine dependence; Z88.8 Allergy status to other drugs, medicaments and biological substances; Z82.49 Family history of ischemic heart disease and other diseases of the circulatory system; Z83.3 Family history of diabetes mellitus; Z84.89 Family history of other specified conditions

== ENCOUNTER 2018-02-18 17:33 | Inpatient (IN) | payer OTHER ==
[~2018-02-18] VITALS: Ht 182.9 cm; Wt 145.0 kg
[~2018-02-18 17:33] MED LIST changes: -ASCO100061 PO; -CHOL1CAP57 PO; -CMD75 PO; -CYM60 PO; -IPRA-64 INH; -LSX20 PO; -LVNIS150 SQ; -OPTIRAY 320 IV PRN; -OXGN; -POTA10TA79 PO; -ROPI3TAB2 PO; -SYMIN160 INH; -TIOT1AER2 INH
--- NOTE | 2018-02-18 17:57 | EMERGENCY ROOM VISIT NOTE ---
History Report prepared by Rod: Sidney Navarrete Under the Supervision of: Dr. Faraz Culver M.D. First contact with patient: 17:46 Chief Complaint: SHORTNESS OF BREATH Stated Complaint: REFERRED BY DR FOR PULMONARY EMOBOLISM, SOB History of Present Illness The patient is a 57 year old male who presents to the Emergency Room after having an outpatient CT scan earlier today which was positive for PE. The patient states he was evaluated by his PCP and was told he needed to have an outpatient CT scan. He reports he had the scan completed because he has been constantly short of breath for a few days. The patient notes exertion worsens his shortness of breath. He states he returned home from his CT scan and received a call that showed a PE. The patient reports intermittent chest pain as well. He notes he recently had a chemical stress test performed. Pt notes a history of having a DVT in the past and placed on Xarelto. The patient states he was taken off Xarelto because he had GI bleeding. Source of History: patient Onset: a few days ago Position: other (lungs) Quality: other (SOB) Timing: constant Associated Symptoms: + chest pain Review of Systems See HPI for pertinent positives and negatives. A total of ten systems were reviewed and were otherwise negative. Past Medical & Surgical Medical Problems: (1) DVT (deep venous thrombosis) (2) Pulmonary embolism (3) Respiratory failure with hypoxia Surgical Problems: (1) History of hand surgery Family History FH: HTN (hypertension) FH: diabetes mellitus FH: lung disease FH: seizures FHx: heart disease FHx: kidney disease Social History Smoking Status: Former Smoker Alcohol Use: none Drug Use: none Marital Status: Housing Status: lives with significant other Occupation Status: employed Current/Historical Medications Scheduled Ascorbic Acid (Ascorbic Acid), 1,000 MG PO AMHS Budesonide/Formoterol Fumarate (Symbicort 160/4.5 Inhaler ), 2 PUFFS INH BID Cholecalciferol (Vitamin D3), 2,000 INTER.UNIT PO HS Duloxetine HCl (Duloxetine HCl), 60 MG PO DAILY Furosemide (Furosemide), 20 MG PO QAM Home O2 Therapy (Oxygen), 2 LITERS NA UD Potassium Chloride Microencaps (Potassium Chloride Cr), 10 MEQ PO DAILY Ropinirole Hydrochloride (Requip), 3 MG PO HS Tiotropium [place] (Spiriva Respimat), 1 PUFF INH DAILY Scheduled PRN Albuterol Hfa (Ventolin Hfa), 2 PUFFS INH Q4H PRN for SOB/Wheezing Ipratropium-Albuterol (Duoneb), 1 TREATMENT INH UD PRN for SOB/Wheezing Allergies Coded Allergies: Nitroglycerin (Verified Adverse Reaction, Severe, "codes to medication in the past", 12/29/14) Physical Exam Vital Signs Date Time Temp Pulse Resp B/P (MAP) Pulse Ox O2 Delivery O2 Flow Rate FiO2 02/18/18 17:52 79 02/18/18 17:48 96 Room Air 02/18/18 17:48 97 Room Air 02/18/18 17:37 36.8 86 22 152/96 97 Room Air Physical Exam Physical Exam GENERAL: He is oriented to person, place, and time. He appears well-developed and well-nourished. He does not appear distressed. HENT: Exam performed. Head: Normocephalic and atraumatic. Right Ear: External ear normal. No mastoid tenderness. Left Ear: External ear normal. No mastoid tenderness. Mouth/Throat: The oropharynx is clear and moist. No trismus in the jaw. No dental abscesses or uvula swelling. No oropharyngeal exudate or tonsillar abscesses. EYES: Conjunctivae and EOM are normal. Pupils are equal, round, and reactive to light. Right eye exhibits no discharge. Left eye exhibits no discharge. No scleral icterus. NECK: Normal range of motion. Neck supple. No JVD present. No spinous process tenderness present. No carotid bruit present. No rigidity. No tracheal deviation and normal range of motion present. No Brudzinski's sign and no Kernig 's sign noted. CV: Normal rate, regular rhythm, normal heart sounds and intact distal pulses. There is no peripheral edema. Palpable radial pulses bue. PULM/CHEST: Effort normal and breath sounds normal. No respiratory distress. No stridor. He has no wheezes. He has no rales. Chest Wall: He exhibits no tenderness. ABD: The abdomen is soft. Bowel sounds are normal. He has no distension. No mass is present. There is no tenderness. There is no rebound, no guarding, no Adams's sign and no tenderness at McBurney's point. Rovsig negative. MUSC/SKEL: Normal range of motion. There is no tenderness or deformity. 2+ pitting edema to the bilateral lower extremities. LYMPH: No cervical adenopathy. NEURO: He is alert and oriented to person, place, and time. He has normal strength. No cranial nerve deficit or sensory deficit. Coordination and gait normal. GCS eye subscore is 4. GCS verbal subscore is 5. GCS motor subscore is 6. Cerebellar tests wnl. SKIN: Skin is warm and dry. He is not diaphoretic. PSYCH: He has a normal mood and affect. Behavior is normal. Judgment and thought content normal. Medical Decision & Procedures Laboratory Results Test 02/18/18 18:12 02/18/18 18:25 02/18/18 18:26 Prothrombin Time 9.9 SECONDS (9.0-12.0) Prothromb Time International Ratio 0.9 (0.9-1.1) Activated Partial Thromboplast Time 25.0 SECONDS (21.0-31.0) Partial Thromboplastin Ratio 1.0 Pro-B-Type Natriuretic Peptide 13 pg/ml (0-900) Bedside Troponin I < 0.030 ng/ml (0-0.045) Bedside Hemoglobin 14.6 g/dl (14.0-18.0) Bedside Hematocrit 43 % (42-52) Bedside Sodium 139 mEq/L (135-144) Bedside Potassium 3.9 mEq/L (3.3-5.0) Bedside Chloride 99 mEq/L (101-112) Bedside Total CO2 27 mEq/l (24-31) Anion Gap 19.0 mmol/L (16-25) Bedside Blood Urea Nitrogen 12 mg/dl (7-18) Bedside Creatinine 1.0 mg/dl (0.6-1.3) Bedside Glucose (other) 102 mg/dl (70-99) Bedside Ionized Calcium ([place]so) 1.16 mmol/l (1.12-1.32) Laboratory results reviewed by me Medications Administered ECG Per My Interpretation Indication: SOB/dyspnea Rate (beats per minute): 76 Rhythm: sinus rhythm Findings: 1st degree AV block, other (WV interval of 278. QRS, QTc intervals are wnl. No ST depression or ST elevation) ED Course 1747: The patient was evaluated in room A09B. A complete history and physical exam was performed. 1750: Ordered Heparin Sodium/Dextrose bolus and drip 1800: I discussed the patient's case with Dr. Ortiz [facility] Hospitalist. The patient will be evaluated for further management and care. 1830: Labs within normal limits. Medical Decision 1748: The patient was evaluated in room A09B. A complete history and physical exam was performed. 1750: Ordered Heparin Sodium/Dextrose bolus and drip 1800: I discussed the patient's case with Dr. Ortiz [facility] Hospitalist. The patient will be evaluated for further management and care. 1830: Labs within normal limits. Medication Reconcilliation Current Medication List: was personally reviewed by me Blood Pressure Screening Patient's blood pressure: Elevated blood pressure Monitored by hospitalist. Consults Time Called: 1753 Consulting Physician: Dr. Ortiz [facility] Hospitalist Returned Call: 1800 I discussed the patient's case with Dr. Ortiz [facility] Hospitalist. The patient will be evaluated for further management and care. Impression Primary Impression: Pulmonary embolism Critical Care I have personally spent greater than 31 minutes of critical care time in the direct management of this patient. This includes bedside care, interpretation of diagnostic studies, and testing, discussion with consultants, patient, and family members, and other required patient management activities. This 31 minutes is in excess of all separately billable procedures. Scribe Attestation The scribe's documentation has been prepared under my direction and personally reviewed by me in its entirety. I confirm that the note above accurately reflects all work, treatment, procedures, and medical decision making performed by me. The chart was completed utilizing [employer] Speech voice recognition software. Grammatical errors, random word insertions, pronoun errors, and incomplete sentences are an occasional consequence of this system due to software limitations, ambient noise, and hardware issues. Any formal questions or concerns about the content, text, or information contained within the body of this dictation should be directly addressed to the physician for clarification. Departure Information Dispostion Being Evaluated By Hospitalist Referrals Praveen Kellogg (PCP) Patient Instructions My [facility] Problem Qualifiers Primary Impression: Pulmonary embolism Pulmonary embolism type: other Chronicity: acute Acute cor pulmonale presence: without acute cor pulmonale Qualified Codes: I26.99 - Other pulmonary embolism without acute cor pulmonale
[2018-02-18] MEDS ORDERED: CHOL1CAP57 PO (18:10)
[2018-02-18] MEDS ORDERED: ASCO100061 PO (18:10)
[2018-02-18] MEDS ORDERED: POTA10TA79 PO (18:15)
[2018-02-18] MEDS ORDERED: CYM60 PO (18:15)
[2018-02-18] MEDS ORDERED: LSX20 PO (18:15)
[2018-02-18] MEDS ORDERED: IPRA-64 INH (18:15)
[2018-02-18] MEDS ORDERED: VNTHFA/IN INH (18:15)
[2018-02-18] MEDS ORDERED: TIOT1AER2 INH (18:15)
[2018-02-18] MEDS ORDERED: OXGN (18:15)
[2018-02-18] MEDS ORDERED: SYMIN160 INH (18:15)
[2018-02-18] MEDS ORDERED: ROPI3TAB2 PO (18:15)
[2018-02-18] MEDS ORDERED: MAGNESIUM HYDROXIDE SUSP 30 ML UDC PO PRN (18:30)
[2018-02-18] MEDS ORDERED: ACETAMINOPHEN 325 MG TAB PO PRN (18:30)
[2018-02-18] MEDS ORDERED: ONDANSETRON INJ 2 MG/ML 2 ML VIAL IV PRN (18:30)
--- NOTE | 2018-02-18 18:31 | History and Physical ---
History & Physical Date & Time of Service: Feb 18, 2018 at 18:29 Chief Complaint: Referred By Dr For Pulmonary Emobolism, Sob Primary Care Physician: Praveen Kellogg History of Present Illness Source: patient, spouse 57 y/o M c/o SOB. Pt states he was tx for PNA in September and has had ongoing SOB with exertion since that time. It is not any worse, but it not improving either. It resolves with rest. He has L sided chest pain since this time as well, but it is not connected with the SOB. He thought it was related to a shoulder injury. Pt as been working with cardiology and pulmonology for these issues. He was started on inhalers, however this has not helped. He had a chemical stress test which was also neg. There are apparently other cardiac tests planned, although pt has not had f/u to discuss with Dr. Mendoza. Pulm ordered a CT today which was noted for PE, so pt was sent to the ED. Pt has hx of R UE DVT about 2.5-3 yrs ago, however he developed GIB on xarelto so this was stopped. Pt states he feels tired and run down at present, but otherwise at his usual. No SOB at rest, no chest pain. He did start lasix because he has been having increasing abd girth despite diet restrictions and some mornings he wakes with heavy LE edema. Others he has no edema. Pt states that about 1 yr ago he had 3 episodes of sudden onset syncope. His vit D level was severely low and he was started on replacement. This has not recurred since that time. Pt denies fever, abd pain, n/v/c/d, LE pain. Past Medical/Surgical History Medical Problems: (1) DVT (deep venous thrombosis) (2) DVT (deep venous thrombosis) (3) GI bleed (4) HTN (hypertension) (5) Hypoxia (6) Obstructive sleep apnea (7) Pulmonary embolism (8) Respiratory failure with hypoxia (9) SOB (shortness of breath) Surgical Problems: (1) History of hand surgery RLS Family History Family history was reviewed; no changes noted. ID Social History Smoking Status: Former Smoker (quit 30 yrs ago) Alcohol Use: none Drug Use: none Marital Status: Occupational Status: employed Allergies Coded Allergies: Nitroglycerin (Verified Adverse Reaction, Severe, "codes to medication in the past", 12/29/14) Home Medications Scheduled Ascorbic Acid (Ascorbic Acid), 1,000 MG PO AMHS Budesonide/Formoterol Fumarate (Symbicort 160/4.5 Inhaler ), 2 PUFFS INH BID Cholecalciferol (Vitamin D3), 2,000 INTER.UNIT PO HS Duloxetine HCl (Duloxetine HCl), 60 MG PO DAILY Furosemide (Furosemide), 20 MG PO QAM Home O2 Therapy (Oxygen), 2 LITERS NA UD Potassium Chloride Microencaps (Potassium Chloride Cr), 10 MEQ PO DAILY Ropinirole Hydrochloride (Requip), 3 MG PO HS Tiotropium [place] (Spiriva Respimat), 1 PUFF INH DAILY Scheduled PRN Albuterol Hfa (Ventolin Hfa), 2 PUFFS INH Q4H PRN for SOB/Wheezing Ipratropium-Albuterol (Duoneb), 1 TREATMENT INH UD PRN for SOB/Wheezing Review of Systems Pertinent positives and negatives reviewed in HPI--all others negative Physical Exam Vital Signs Date Time Temp Pulse Resp B/P (MAP) Pulse Ox O2 Delivery O2 Flow Rate FiO2 02/18/18 17:52 79 02/18/18 17:48 96 Room Air 02/18/18 17:48 97 Room Air 02/18/18 17:37 36.8 86 22 152/96 97 Room Air General Appearance: no apparent distress, + obese Head: normocephalic, atraumatic Eyes: normal inspection, sclerae normal Respiratory/Chest: normal breath sounds, no respiratory distress Cardiovascular: regular rate, rhythm, normal peripheral pulses Abdomen/GI: non tender, + distended Extremities/Musculoskelatal: no calf tenderness, + pedal edema (1+ pitting) Neurologic/Psych: alert, normal mood/affect, oriented x 3 Skin: normal color, warm/dry Diagnostics Laboratory Results Results Past 24 Hours Test 02/18/18 18:12 Range/Units Diagnostic Radiology CTA: RLL PE ANJALI nodule, stable EKG Sinus with 1st degree AV block, noted since 2014 Impression Assessment and Plan 57 y/o M who was admitted on 02/18 with PE PE: unprovoked, uncertain etiology Started on heparin gtt, hx of GIB on xarelto heme/onc c/s pending Increased abd girth: t/c outpt c-scope vs CT AP ANJALI nodule: seen prior, stable 1st degree AV block: seen prior Chest pain: possibly related to ANJALI nodule, not new or worsening Chemical stress 2 weeks ago neg Monitor Follows with Dr. Mendoza if needed LUIS: CPAP as at home RLS: continue home meds Other: Full code Heparin for DVT proph Reg diet Resuscitation Status VTE Prophylaxis Will order VTE Prophylaxis: Yes
[2018-02-18 18:41] LABS: INR 0.9 (0.9-1.1)
[2018-02-18 18:44] LABS: ISTAT IONIZED CALCIUM 1.16 mmol/l (1.12-1.32); ISTAT POTASSIUM 3.9 mEq/L (3.3-5.0)
[2018-02-18] MEDS ORDERED: HEPARIN 25000 UNIT/500 ML D5W ONE (18:52)
[2018-02-18] MEDS ORDERED: HEPARIN SOD (PORCINE) 1000 UNIT/ML 10 ML VIAL ONE (18:52)
[2018-02-18 20:10] VITALS: BP 137/84; PULSE 71; TEMP 36.8; O2SAT 97; Ht 182.9 cm; Wt 145.0 kg
[2018-02-18] MEDS ORDERED: ALBUTEROL HFA 8 GM INHALER INH PRN (20:15)
[2018-02-18] MEDS: HEPARIN 25,000 UNIT/500ML D5W 500 ML IV SCH (21:28)
[2018-02-18] MEDS: BUDESONIDE/FORMOTEROL FUMARATE 160/4.5 60 PUFFS/INHALER INH SCH (21:28)
[2018-02-18] MEDS: ASCORBIC ACID 500 MG TAB PO SCH (21:29)
[2018-02-18] MEDS: ROPINIROLE HCL 1 MG TAB PO SCH (21:29)
[2018-02-18] MEDS: CHOLECALCIFEROL 1000 INTER.UNIT TAB PO SCH (21:30)
[2018-02-18 23:58] VITALS: BP 142/71; PULSE 69; TEMP 36.8; O2SAT 91
[2018-02-18] MEDS: IBUPROFEN 600 MG TAB PO PRN (23:59)
[2018-02-19] MEDS ORDERED: ALBUTEROL 0.083% NEBU SOLN 3 ML VIAL INH PRN (00:45)
[2018-02-19 01:21] LABS: PTT PATIENT 46.9 SECONDS (21.0-31.0)
[2018-02-19 04:42] VITALS: BP 119/77; PULSE 60; TEMP 36.5; O2SAT 96
[2018-02-19 07:08] LABS: CHOLESTEROL 155 mg/dl (0-200); LDL CHOLESTEROL CALCULATED 96 mg/dl
[2018-02-19 07:19] VITALS: BP 115/71; PULSE 55; TEMP 36.6; O2SAT 96
[2018-02-19] MEDS: DULOXETINE HCL 60 MG CAP PO SCH (07:42)
[2018-02-19] MEDS: FUROSEMIDE 20 MG TAB PO SCH (07:42)
[2018-02-19] MEDS: ASCORBIC ACID 500 MG TAB PO SCH ×2 (07:42→19:00)
[2018-02-19] MEDS: POTASSIUM CHLORIDE 10 MEQ TABCR PO SCH (07:43)
[2018-02-19] MEDS: TIOTROPIUM BROMIDE 28 PUFF/4 GM INH INH SCH (07:43)
[2018-02-19] MEDS: BUDESONIDE/FORMOTEROL FUMARATE 160/4.5 60 PUFFS/INHALER INH SCH ×2 (07:44→19:00)
[2018-02-19] MEDS: HEPARIN 25,000 UNIT/500ML D5W 500 ML IV SCH (07:49)
--- NOTE | 2018-02-19 09:18 | Progress Note ---
Subjective Date of Service: Feb 19, 2018. Subjective this pt has less to no chest pain, he has some shortness of breath, he has no focal leg pain or problems, he does not want to be restarted on any DOAC due to some hemorrhoidal bleeding that occued on Xarelto in 2014 Problem List Medical Problems: (1) Hypoxia Status: Acute (2) Obstructive sleep apnea Status: Acute (3) Pulmonary embolism Status: Chronic (4) SOB (shortness of breath) Status: Acute Review of Systems Constitutional: No fever, No chills, No sweats Respiratory: + dyspnea on exertion, No cough, No shortness of breath Cardiac: No chest pain, No edema Abdomen: No pain, No nausea, No vomiting, No diarrhea Musculoskeletal: No joint pain, No muscle pain Male : No dysuria, No urinary frequency Objective Vital Signs Date Time Temp Pulse Resp B/P (MAP) Pulse Ox O2 Delivery O2 Flow Rate FiO2 02/19/18 07:19 36.6 55 17 115/71 (86) 96 Room Air 02/19/18 04:42 36.5 60 20 119/77 (91) 96 Nasal Cannula 2.0 02/19/18 00:00 Nasal Cannula 2.0 02/18/18 23:58 36.8 69 20 142/71 (94) 91 Nasal Cannula 2.0 02/18/18 20:10 36.8 71 19 137/84 97 02/18/18 19:44 70 18 148/97 95 02/18/18 19:30 70 18 148/97 95 Room Air 02/18/18 19:00 77 18 126/80 96 Room Air 02/18/18 17:52 79 02/18/18 17:48 96 Room Air 02/18/18 17:48 97 Room Air 02/18/18 17:37 36.8 86 22 152/96 97 Room Air Physical Exam General Appearance: WD/WN, + mild distress, + obese Eyes: normal inspection, sclerae normal Neck: supple, no JVD Respiratory/Chest: no respiratory distress, + decreased breath sounds Cardiovascular: regular rate, rhythm, no murmur Abdomen: normal bowel sounds, non tender, soft Extremities: no calf tenderness, + pedal edema Laboratory Results Last 24 Hours Test 02/18/18 18:12 02/18/18 18:25 02/18/18 18:26 02/19/18 00:45 Prothrombin Time 9.9 SECONDS Prothromb Time International Ratio 0.9 Activated Partial Thromboplast Time 25.0 SECONDS 46.9 SECONDS Partial Thromboplastin Ratio 1.0 1.8 Pro-B-Type Natriuretic Peptide 13 pg/ml Bedside Troponin I < 0.030 ng/ml Bedside Hemoglobin 14.6 g/dl Bedside Hematocrit 43 % Bedside Sodium 139 mEq/L Bedside Potassium 3.9 mEq/L Bedside Chloride 99 mEq/L Bedside Total CO2 27 mEq/l Anion Gap 19.0 mmol/L Bedside Blood Urea Nitrogen 12 mg/dl Bedside Creatinine 1.0 mg/dl Bedside Glucose (other) 102 mg/dl Bedside Ionized Calcium ([place]) 1.16 mmol/l Troponin I < 0.015 ng/ml Test 02/19/18 06:24 Troponin I < 0.015 ng/ml Triglycerides Level 136 mg/dl Cholesterol Level 155 mg/dl HDL Cholesterol 32 mg/dl LDL Cholesterol, Calculated 96 mg/dl VLDL Cholesterol, Calculated 27 mg/dl Cholesterol/HDL Ratio 4.8 Assessment and Plan 57 y/o M who was admitted on 02/18 with PE PE: unprovoked, has had pe in past and ue DVT associated with picc line Started on heparin gtt, hx of GIB on xarelto, this was rectal bleeding, will move toward heparin and coumadin first dose 02/19 heme/onc c/s recommends at least 6 months of full anticoagulation but likely life long Increased abd girth: t/c outpt c-scope vs CT AP, last CT in 2014 unremarkable, chest CT with multiple small nodules ANJALI nodule: seen prior, stable 1st degree AV block: seen prior Chest pain: possibly related to PE Chemical stress 2 weeks ago neg, does not appear to be ACS LUIS: CPAP as at home RLS: continue home meds Other: Full code Heparin for DVT proph Reg diet
[2018-02-19 11:18] VITALS: BP 120/81; PULSE 65; TEMP 36.3; O2SAT 93
[2018-02-19] MEDS: IBUPROFEN 600 MG TAB PO PRN ×2 (11:44→21:01)
--- NOTE | 2018-02-19 12:00 | Oncology Consultation ---
Oncology/Heme Consultation Date of Consultation: Feb 19, 2018. Attending Physician: Kenyon Mccarty M.D. Reason for Consultation: Pulmonary embolism History of Present Illness Mr. Hoskins is a 57 year old man with a remote history of smoking and chronic shortness of breath. He has been working with pulmonology for this issue and had a CTA yesterday as an outpatient. This revealed some bronchial thickening and some scattered sub-centimeter nodules, but also incidentally revealed a subsegmental right PE. He was admitted for management of this. 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 He has no other prior thrombotic history. His brother apparently of a thromboembolism in the context of a major orthopedic surgery, though the details on this are a bit shaky. He has no other specific family history of VTE. When he was treated for the VTE in 2014, he was started on Xarelto but then experienced an increase in rectal bleeding. He has hemorrhoids and the bleeding was mild. However, as a result of that episode he is very reticent about the idea of DOACs. He still has occasional hemorrhoidal bleeding now, though it is minor. Past Medical/Surgical History Medical Problems: (1) Hypoxia Status: Acute (2) Obstructive sleep apnea Status: Acute (3) Pulmonary embolism Status: Chronic (4) SOB (shortness of breath) Status: Acute Family History FH: HTN (hypertension) FH: diabetes mellitus FH: lung disease FH: seizures FHx: heart disease FHx: kidney disease Social History Smoking Status: Former Smoker Alcohol Use: none Drug Use: none Marital Status: Housing Status: lives with significant other Occupation Status: employed Allergies Coded Allergies: Nitroglycerin (Verified Adverse Reaction, Severe, "codes to medication in the past", 12/29/14) Home Medications Scheduled Ascorbic Acid (Ascorbic Acid), 1,000 MG PO AMHS Budesonide/Formoterol Fumarate (Symbicort 160/4.5 Inhaler ), 2 PUFFS INH BID Cholecalciferol (Vitamin D3), 2,000 INTER.UNIT PO HS Duloxetine HCl (Duloxetine HCl), 60 MG PO DAILY Furosemide (Furosemide), 20 MG PO QAM Home O2 Therapy (Oxygen), 2 LITERS NA UD Potassium Chloride Microencaps (Potassium Chloride Cr), 10 MEQ PO DAILY Ropinirole Hydrochloride (Requip), 3 MG PO HS Tiotropium [place] (Spiriva Respimat), 1 PUFF INH DAILY Scheduled PRN Albuterol Hfa (Ventolin Hfa), 2 PUFFS INH Q4H PRN for SOB/Wheezing Ipratropium-Albuterol (Duoneb), 1 TREATMENT INH UD PRN for SOB/Wheezing Current Inpatient Medications Current Inpatient Medications Medications (Trade) Dose Ordered Sig/Trey Route Start Time Stop Time Status Last Admin Dose Admin Acetaminophen (Tylenol Tab) 650 mg Q4H PRN PO 02/18/18 18:30 03/20/18 18:29 02/18/18 21:42 650 MG Magnesium Hydroxide (Milk Of Magnesia Susp) 30 ml Q12H PRN PO 02/18/18 18:30 03/20/18 18:29 Ondansetron HCl (Zofran Inj) 4 mg Q6H PRN IV 02/18/18 18:30 03/20/18 18:29 Albuterol (Ventolin Hfa Inhaler) 2 puffs Q4H PRN INH 02/18/18 20:15 03/20/18 20:14 Budesonide/ Formoterol Fumarate (Symbicort 160/ 4.5 Inh) 2 puffs BID INH 02/18/18 21:00 03/20/18 20:59 02/19/18 07:44 2 PUFFS Duloxetine HCl (Cymbalta Cap) 60 mg DAILY PO 02/19/18 09:00 03/21/18 08:59 02/19/18 07:42 60 MG Furosemide (Lasix Tab) 20 mg QAM PO 02/19/18 09:00 03/21/18 08:59 02/19/18 07:42 20 MG Potassium Chloride (Klor-Con M10) 10 meq DAILY PO 02/19/18 09:00 03/21/18 08:59 02/19/18 07:43 10 MEQ Ropinirole HCl (Requip Tab) 3 mg HS PO 02/18/18 21:00 03/20/18 20:59 02/18/18 21:29 3 MG Ascorbic Acid (Vitamin C Tab) 1,000 mg AMHS PO 02/18/18 21:00 03/20/18 20:59 02/19/18 07:42 1,000 MG Cholecalciferol (Vitamin D Tab) 2,000 inter.unit HS PO 02/18/18 21:00 03/20/18 20:59 02/18/18 21:30 2,000 INTER.UNIT Heparin Sodium/ Dextrose 500 ml @ 38 mls/hr [id number] IV 02/18/18 20:15 03/20/18 20:14 02/19/18 07:49 38 MLS/HR Tiotropium [place] (Spiriva Respimat) 2 puff DAILY INH 02/19/18 09:00 03/21/18 08:59 02/19/18 07:43 2 PUFF Ibuprofen (Motrin Tab) 600 mg TID PRN PO 02/19/18 00:00 03/21/18 00:00 02/18/18 23:59 600 MG Albuterol Sulfate (Ventolin 0.083% 2.5MG/3ML Neb) 2.5 mg QS PRN INH 02/19/18 00:45 03/21/18 00:44 Review of Systems Constitutional: No fever, No weakness, No fatigue ENT: No unusual epistaxis Respiratory: + dyspnea on exertion, No cough, No hemoptysis Cardiovascular: No chest pain Abdomen: + GI bleeding (hemorroids), No pain, No nausea Musculoskeletal: No joint pain, No muscle pain Genitourinary - Male: No dysuria Hematologic / Lymphatic: + clotting problems, No abnormal bleeding/bruising Integumentary: No rash Physical Exam Date Time Temp Pulse Resp B/P (MAP) Pulse Ox O2 Delivery O2 Flow Rate FiO2 02/19/18 11:18 36.3 65 16 120/81 (94) 93 Room Air 02/19/18 07:19 36.6 55 17 115/71 (86) 96 Room Air 02/19/18 04:42 36.5 60 20 119/77 (91) 96 Nasal Cannula 2.0 02/19/18 00:00 Nasal Cannula 2.0 02/18/18 23:58 36.8 69 20 142/71 (94) 91 Nasal Cannula 2.0 02/18/18 20:10 36.8 71 19 137/84 97 02/18/18 19:44 70 18 148/97 95 02/18/18 19:30 70 18 148/97 95 Room Air 02/18/18 19:00 77 18 126/80 96 Room Air 02/18/18 17:52 79 02/18/18 17:48 96 Room Air 02/18/18 17:48 97 Room Air 02/18/18 17:37 36.8 86 22 152/96 97 Room Air General Appearance: no apparent distress, + obese ENT: pharynx normal Respiratory/Chest: lungs clear Cardiovascular: regular rate, rhythm Abdomen/GI: non tender, soft Extremities/Musculoskelatal: no calf tenderness, no pedal edema Neurologic/Psych: alert, oriented x 3 Skin: no rash Laboratory Results Last 24 Hours Test 02/18/18 18:12 02/18/18 18:25 02/18/18 18:26 02/19/18 00:45 Prothrombin Time 9.9 SECONDS Prothromb Time International Ratio 0.9 Activated Partial Thromboplast Time 25.0 SECONDS 46.9 SECONDS Partial Thromboplastin Ratio 1.0 1.8 Pro-B-Type Natriuretic Peptide 13 pg/ml Bedside Troponin I < 0.030 ng/ml Bedside Hemoglobin 14.6 g/dl Bedside Hematocrit 43 % Bedside Sodium 139 mEq/L Bedside Potassium 3.9 mEq/L Bedside Chloride 99 mEq/L Bedside Total CO2 27 mEq/l Anion Gap 19.0 mmol/L Bedside Blood Urea Nitrogen 12 mg/dl Bedside Creatinine 1.0 mg/dl Bedside Glucose (other) 102 mg/dl Bedside Ionized Calcium ([place]) 1.16 mmol/l Troponin I < 0.015 ng/ml Test 02/19/18 06:24 Troponin I < 0.015 ng/ml Triglycerides Level 136 mg/dl Cholesterol Level 155 mg/dl HDL Cholesterol 32 mg/dl LDL Cholesterol, Calculated 96 mg/dl VLDL Cholesterol, Calculated 27 mg/dl Cholesterol/HDL Ratio 4.8 Assessment & Plan Mr. Hoskins has an incidentally noted right subsegmental PE. He is on heparin and will need to be converted to an outpatient anticoagulant regimen. We should doppler his legs to evaluate for DVT. Xarelto would be an attractive option, but he has had issues with it in the past and there is at least a theoretical concern about underdosing in patients with BMIs over 40, who were excluded in many of the Xarelto trials. Warfarin would be an alternative, but we would probably have to keep him in the hospital to bridge him, as it may be difficult to get a therapeutic dose of Lovenox given his weight. We will plan on about 6 months of full AC and then I can talk with him as an outpatient about long-term AC, as this is his second VTE event and he is obese, which is a risk factor for further thrombosis.
--- NOTE | 2018-02-19 12:46 | DIAGNOSTIC IMAGING REPORT ---
ULTRASOUND VENOUS DOPPLER LWR EXT BILA CLINICAL HISTORY: Pulmonary embolism. COMPARISON STUDY: December 30, 2017 FINDINGS: Real-time and color flow Doppler imaging were performed. Flow was seen within the femoral, popliteal and calf veins with no intraluminal thrombus demonstrated. The saphenous vein is patent. There are bilateral popliteal cysts, which contains small calcifications. IMPRESSION: No evidence of lower extremity DVT. Electronically signed by: Salvador Donohue M.D. 02/19/2018 12:45 PM Dictated Date/Time: 02/19/2018 12:44 PM
[2018-02-19] MEDS: ENOXAPARIN 150 MG/1ML SYR SQ SCH ×2 (13:40→23:08)
[2018-02-19] MEDS: WARFARIN SOD 7.5 MG TAB PO SCH (15:41)
[2018-02-19 15:58] VITALS: BP 143/86; PULSE 75; TEMP 37.4; O2SAT 94
[2018-02-19] MEDS: ROPINIROLE HCL 1 MG TAB PO SCH (19:00)
[2018-02-19] MEDS: CHOLECALCIFEROL 1000 INTER.UNIT TAB PO SCH (19:00)
[2018-02-19 19:08] VITALS: BP 153/89; PULSE 77; TEMP 36.8; O2SAT 94
[2018-02-19 23:06] VITALS: BP 114/70; PULSE 77; TEMP 36.9; O2SAT 96
[2018-02-20 04:41] VITALS: BP 103/61; PULSE 58; TEMP 36.5; O2SAT 96
[2018-02-20 07:10] VITALS: BP 134/87; PULSE 55; TEMP 36.7; O2SAT 99
[2018-02-20 07:35] LABS: PTT PATIENT 31.7 SECONDS (21.0-31.0)
[2018-02-20] MEDS: TIOTROPIUM BROMIDE 28 PUFF/4 GM INH INH SCH (08:31)
[2018-02-20] MEDS: POTASSIUM CHLORIDE 10 MEQ TABCR PO SCH (08:32)
[2018-02-20] MEDS: FUROSEMIDE 20 MG TAB PO SCH (08:32)
[2018-02-20] MEDS: ASCORBIC ACID 500 MG TAB PO SCH ×2 (08:32→21:09)
[2018-02-20] MEDS: DULOXETINE HCL 60 MG CAP PO SCH (08:32)
[2018-02-20] MEDS: BUDESONIDE/FORMOTEROL FUMARATE 160/4.5 60 PUFFS/INHALER INH SCH ×2 (08:32→21:09)
[2018-02-20] MEDS: ENOXAPARIN 150 MG/1ML SYR SQ SCH (11:49)
[2018-02-20 12:07] VITALS: BP 138/90; PULSE 76; TEMP 37.1; O2SAT 95
--- NOTE | 2018-02-20 12:55 | Progress Note ---
Subjective Date of Service: Feb 20, 2018. Subjective Pt evaluation today including: conversation w/ patient, conversation w/ family , physical exam, chart review, lab review, review of studies, conversation w/ ada accommodation consultant, review of inpatient medication list Voiding: no voiding problems Doing fair, has been up and walk inside the room, not walk outside yet, has chronic dyspnea on exertion while walking the hallway prior to admission Problem List Medical Problems: (1) Hypoxia Status: Acute (2) Obstructive sleep apnea Status: Acute (3) Pulmonary embolism Status: Chronic (4) SOB (shortness of breath) Status: Acute Review of Systems Constitutional: No fever, No chills, No sweats, No weight loss, No weakness, No fatigue, No problem reported Eyes: No worsening of vision, No eye pain, No redness, No discharge, No diplopia ENT: No hearing loss, No unusual epistaxis, No nasal symptoms, No sore throat, No tinnitus, No dental problems, No trouble swallowing Respiratory: + dyspnea on exertion (Is not new), No cough, No sputum, No wheezing, No shortness of breath, No dyspnea at rest, No hemoptysis Cardiac: No chest pain, No orthopnea, No PND, No edema, No claudication, No palpitations Abdomen: No pain, No nausea, No vomiting, No diarrhea, No constipation Musculoskeletal: No joint pain, No muscle pain, No swelling, No calf pain Male : No dysuria, No urinary frequency, No incontinence, No nocturia more than once/night, No slowing stream, No hematuria Neurologic: No memory loss, No paralysis, No weakness, No numbness/tingling, No vertigo, No balance problems Psychiatric: No depression symptoms, No anhedonism, No anxiety, No insomnia, No substance abuse Heme: No abnormal bleeding/bruising, No clotting problems, No swollen lymph nodes, No night sweats Endo: No fatigue, No excessive thirst, No excessive urination Skin: No rash, No itch, No new/changing skin lesions, No color change, No bleeding Objective Vital Signs Date Time Temp Pulse Resp B/P (MAP) Pulse Ox O2 Delivery O2 Flow Rate FiO2 02/20/18 12:07 37.1 76 16 138/90 (106) 95 Room Air 02/20/18 07:10 36.7 55 16 134/87 (103) 99 CPAP 02/20/18 04:41 36.5 58 22 103/61 (75) 96 BiPAP 02/20/18 00:05 CPAP 02/19/18 23:06 36.9 77 18 114/70 (85) 96 CPAP 02/19/18 19:08 36.8 77 18 153/89 (110) 94 Room Air 02/19/18 15:58 37.4 75 20 143/86 (105) 94 Room Air Physical Exam General Appearance: WD/WN, no apparent distress, + obese Eyes: normal inspection, PERRL, EOMI, sclerae normal ENT: normal ENT inspection, hearing grossly normal, pharynx normal Neck: supple, no adenopathy, thyroid normal, no JVD, no carotid bruits, trachea midline Respiratory/Chest: chest non-tender, lungs clear, normal breath sounds, no respiratory distress, no accessory muscle use, + decreased breath sounds Cardiovascular: regular rate, rhythm, no edema, no gallop, no JVD, no murmur Abdomen: normal bowel sounds, non tender, soft, no organomegaly, no pulsatile mass Extremities: normal range of motion, non-tender, normal inspection, no pedal edema, no calf tenderness, normal capillary refill, pelvis stable 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, no motor/sensory deficits, alert, normal mood/affect, oriented x 3 Skin: normal color, warm/dry, no rash Lymphatic: no adenopathy Laboratory Results Last 24 Hours Test 02/19/18 12:51 02/20/18 07:11 02/20/18 11:29 Troponin I < 0.015 ng/ml Prothrombin Time 10.3 SECONDS Prothromb Time International Ratio 1.0 Activated Partial Thromboplast Time 31.7 SECONDS Partial Thromboplastin Ratio 1.2 Arterial Blood pH 7.41 Arterial Blood Partial Pressure CO2 43 mmHg Arterial Blood Partial Pressure O2 70 mm/Hg Arterial Blood HCO3 27 mmol/L Arterial Blood Oxygen Saturation 93.2 % Arterial Blood Base Excess 2.0 mEq/L Arterial Blood Gas Delivery ROOM AIR Sveen Test POS Assessment and Plan 57 y/o M who was admitted on 02/18 2018 with PE Acute pulmonary embolization, unprovoked, has had pe in past and right upper extremity DVT associated with picc line Was on heparin drip when he was admitted, switch to Lovenox bridging for Coumadin first dose 02/19/2018, Lovenox dose is 1 mg/kg every 12 hour heme/onc c/s recommends at least 6 months of full anticoagulation but likely life long, hematology also mentioned possible difficult to management of the concentration for the Lovenox because of obesity Will check anti-X a level 4 hour after 4thdose of Lovenox, checking will be tomorrow morning 4 a.m. Increased abd girth: Advised outpt c-scope vs CT AP, last CT in 2014 unremarkable, chest CT with multiple small nodules ANJALI nodule: seen prior, stable, advised to follow-up with PCP 1st degree AV block: Is not new Chest pain: possibly related to PE, Chemical stress 2 weeks ago neg, does not appear to be ACS LUIS: CPAP as at home RLS: continue home meds Full code Heparin for DVT proph Increase activities, planning to discharge home tomorrow if factor Xa level is therapeutic, has give prescription to check for the co-pay of Lovenox, also asked nursing staff to teaching patient and family how to give Lovenox by patient himself of family member Patient's is [employer] Continued [facility] stay due to: home environment unsafe for pt Discharge planning: home
[2018-02-20] MEDS: IBUPROFEN 600 MG TAB PO PRN ×2 (13:54→21:15)
[2018-02-20 15:20] VITALS: BP 128/72; PULSE 73; TEMP 36.6; O2SAT 94
[2018-02-20] MEDS: WARFARIN SOD 7.5 MG TAB PO SCH (15:45)
[2018-02-20] MEDS: ROPINIROLE HCL 1 MG TAB PO SCH (18:56)
[2018-02-20 19:01] VITALS: BP 142/83; PULSE 87; TEMP 36.6; O2SAT 93
[2018-02-20] MEDS: CHOLECALCIFEROL 1000 INTER.UNIT TAB PO SCH (21:09)
[2018-02-20 23:01] VITALS: BP 115/70; PULSE 77; TEMP 36.7; O2SAT 96
[2018-02-21] MEDS: ENOXAPARIN 150 MG/1ML SYR SQ SCH ×2 (00:18→12:19)
[2018-02-21 04:13] LABS: INR 1.1 (0.9-1.1)
[2018-02-21 04:48] VITALS: BP 138/79; PULSE 55; TEMP 36.1; O2SAT 96
[2018-02-21] MEDS: TIOTROPIUM BROMIDE 28 PUFF/4 GM INH INH SCH (07:28)
[2018-02-21] MEDS: BUDESONIDE/FORMOTEROL FUMARATE 160/4.5 60 PUFFS/INHALER INH SCH (07:29)
[2018-02-21] MEDS: POTASSIUM CHLORIDE 10 MEQ TABCR PO SCH (07:29)
[2018-02-21] MEDS: ASCORBIC ACID 500 MG TAB PO SCH (07:29)
[2018-02-21] MEDS: FUROSEMIDE 20 MG TAB PO SCH (07:30)
[2018-02-21] MEDS: DULOXETINE HCL 60 MG CAP PO SCH (07:30)
[2018-02-21 07:37] VITALS: BP_SYST 149; BP_SYST 156; BP_DIAS 89; BP_DIAS 98; PULSE 51; TEMP 36.8; O2SAT 94
[2018-02-21 11:42] VITALS: BP 116/71; PULSE 74; TEMP 36.6; O2SAT 91
[2018-02-21] MEDS ORDERED: ENOXAPARIN 1 MG/KG SQ ONE (11:45)
[2018-02-21] MEDS ORDERED: LVNIS150 SQ (11:48)
[2018-02-21] MEDS ORDERED: CMD75 PO (11:48)
--- NOTE | 2018-02-21 11:55 | Discharge Instructions ---
Discharge Instructions Date of Service Feb 21, 2018. Admission Reason for Admission: Pulmonary Embolism VTE Date & Time Date of VTE Diagnosis: Feb 18, 2018 Time of VTE Diagnosis: 11:28 Discharge Goals Goal(s): Decrease discomfort, Improve function, Increase independence, Improve disease control, Improve nutritional status, Learn about illness, Diagnostic testing, Therapeutic intervention, Prevent Disease Progression, Specific goals Activity Recommendations Activity Limitations: resume your previous activity . Instructions / Follow-Up Instructions / Follow-Up you have Acute pulmonary embolization, Lovenox bridging for Coumadin Lovenox dose is 1 mg/kg every 12 hour, this need to be stop when INR>2 you need to have INR checked on 02/24/2018 in PCP 's office, then follow up instruction from PCP anticoagulation likely need life long you have Increased abdominal girth: Advised outpt colonoscope -scope vs CT AP, last CT with PCP you have multiple small nodules in your lung, need to follow up with pcp about this - you need to follow up with your primary care physician on Feb 24 2018, - take medication as instructed, never overdose or any misuse, or take with alcohol, because misuse of medicine may cause organ damage or , call me , or your primary care physician if have questions of discharge medicaitons. - call your primary care physician, or go to local emergency room if has any fever/chill, chest pain, shortness of breathing, nausea/vomiting/abdominal pain , facial droop/slurry speech/local weakness, or if has any questions. - fall precaution - diet as instructed Medication Instructions: * Warfarin is a medicine prescribed to prevent blood clots * Warfarin will thin your blood and help prevent new clots * Take your medications exactly as directed * Never skip a dose. Never take a double dose. If you miss a dose, take it as soon as you remember * It is important for your doctor to monitor your prothrombin time (PT). This is a lab test * Keep your appointment for lab tests Risk of Adverse Drug Reactions and Interactions: * Warfarin increases your risk of bleeding * The food you eat and other medications you take can affect how Warfarin works in your body * Ask your doctor about daily aspirin therapy * It is very important to talk with your doctor about all of the other medicines , antibiotics, vitamins or herbal products that you are taking * All of your medication must be approved by your doctor, including new medicines, as well as medicines you have taken before you started taking Warfarin Diet: * In order for Warfarin to work properly, it is important to keep your intake of Vitamin K as consistent as possible * You should avoid any sudden change in Vitamin K intake * Report any significant changes in your diet or weight to your doctor Call your Primary Care doctor if you experience any of the following: * Swelling or Pain in your leg * Sudden, continuous pain deep in a muscle * Pain that worsens when you are active or when you stand still for a long time * Chest Pain * Sudden Shortness of Breath * Rapid or pounding heart beat * Fainting * Dizziness * Cough with blood or bloody sputum * Sweating more than normal * Bruises * Heavy or uncontrolled bleeding * Blood in your urine, stool or vomit * Black or tarry stools Caring for Your Self at Home: * Avoid sitting, standing or lying down for long periods without moving your legs and feet * When traveling by car, stop to get out and move around at least once every 3 hours * On long airplane, train or bus rides, get up and move around when possible * If you can't get up, wiggle your toes and tighten your calves to keep your blood moving Follow Up: It is important for you to keep your follow up appointments with your medical provider. Current Hospital Diet Patient's current hospital diet: Regular Diet Discharge Diet Recommended Diet: Regular Diet Pending Studies Studies pending at discharge: no Laboratory Results Lipid Panel Test 02/19/18 06:24 Range/Units Triglycerides Level 136 0-150 mg/dl Cholesterol Level 155 0-200 mg/dl HDL Cholesterol 32 mg/dl Cholesterol/HDL Ratio 4.8 LDL Cholesterol, Calculated 96 mg/dl Medical Emergencies . Who to Call and When: Medical Emergencies: If at any time you feel your situation is an emergency, please call 911 immediately. . Non-Emergent Contact Non-Emergency issues call your: Primary Care Provider . . "Provider Documentation" section prepared by Louis Pate. . VTE Core Measure Reason no anticoag overlap I/P: Treatment provided - N/A Reason no anticoag overlap @DC: Treatment provided - N/A
[2018-02-21 12:26] VITALS: BP 116/71; PULSE 74; TEMP 36.6; O2SAT 91
[2018-02-21] MEDS ORDERED: LOVENOX TEACHING KIT ONE (13:00)
--- NOTE | 2018-02-21 17:09 | Discharge Summary ---
Discharge Summary Date of Service Feb 21, 2018. Discharge Summary Admission Date: Feb 18, 2018 at 18:28 Discharge Date: Feb 21, 2018 Principal Diagnosis: e pulmonary embolization, Problems/Secondary Diagnoses: (1) Pulmonary embolism Status: Chronic Procedures: No Consultations: Oncology Medication Reconciliation New Medications: Enoxaparin (Lovenox) 150 Mg/1 Ml Inj 150 MG SQ Q12 for 5 Days, #10 need to stop if INR>2 Warfarin Sod (Coumadin) 7.5 Mg Tab 7.5 MG PO DAILY@16 for 30 Days, TAB Continued Medications: Albuterol Hfa (Ventolin Hfa) 200 Puffs/10693 Mcg Aers 2 PUFFS INH Q4H PRN for SOB/Wheezing, INHALER Ascorbic Acid (Ascorbic Acid) 1,000 Mg Tab 1000 MG PO AMHS Budesonide/Formoterol Fumarate (Symbicort 160/4.5 Inhaler ) Aero 2 PUFFS INH BID, INHALER Cholecalciferol (Vitamin D3) 1,000 Unit Cap 2000 INTER.UNIT PO HS Duloxetine HCl (Duloxetine HCl) 60 Mg Cap 60 MG PO DAILY Furosemide (Furosemide) 20 Mg Tab 20 MG PO QAM Home O2 Therapy (Oxygen) Gas 2 LITERS NA UD, BTL WITH C-PAP Ipratropium-Albuterol (Duoneb) 3 Ml Nebu 1 TREATMENT INH UD PRN for SOB/Wheezing, INHA Potassium Chloride Microencaps (Potassium Chloride Cr) 10 Meq Tab 10 MEQ PO DAILY Ropinirole Hydrochloride (Requip) 3 Mg Tab 3 MG PO HS Tiotropium Brule (Spiriva Respimat) 1.25 Mcg/Act Aer 1 PUFF INH DAILY, INHALER Discharge Exam Doing well, conversational, up and walk, denies chest pain, Review of Systems: Constitutional: No fever, No chills, No sweats, No weight loss, No weakness , No fatigue, No problem reported Eyes: No worsening of vision, No eye pain, No redness, No discharge, No diplopia, No problem reported ENT: No hearing loss, No unusual epistaxis, No nasal symptoms, No sore throat, No tinnitus, No dental problems, No trouble swallowing, No problem reported Respiratory: No cough, No sputum, No wheezing, No shortness of breath, No dyspnea on exertion, No dyspnea at rest, No hemoptysis, No problem reported Cardiovascular: No chest pain, No orthopnea, No PND, No edema, No claudication, No palpitations, No problem reported Abdomen: No pain, No nausea, No vomiting, No diarrhea, No constipation, No GI bleeding, No problem reported Musculoskeletal: No joint pain, No muscle pain, No swelling, No calf pain, No problem reported Genitourinary - Male: No hematuria, No dysuria, No urinary frequency, No urinary urgency, No urinary hesitancy, No urinary retention, No urinary incontinence, No penile discharge, No lesions, No impotence, No problem reported Neurologic: No memory loss, No paralysis, No weakness, No numbness/tingling , No vertigo, No balance problems, No problem reported Psychiatric: No depression symptoms, No anhedonism, No anxiety, No insomnia , No substance abuse, No problem reported Endocrine: No fatigue, No excessive thirst, No excessive urination, No problem reported Hematologic / Lymphatic: No abnormal bleeding/bruising, No clotting problems , No swollen lymph nodes, No night sweats, No problem reported Integumentary: No rash, No itch, No new/changing skin lesions, No color change, No bleeding, No problem reported Physical Exam: General Appearance: WD/WN, + obese Eyes: normal inspection, PERRL, EOMI ENT: normal ENT inspection, hearing grossly normal Neck: supple, no adenopathy, thyroid normal Respiratory/Chest: chest non-tender, normal breath sounds, no respiratory distress, + decreased breath sounds Cardiovascular: regular rate, rhythm, no edema, no gallop Abdomen / GI: normal bowel sounds, non tender, soft, no organomegaly, no pulsatile mass, normal rectal exam Extremities: normal inspection, no calf tenderness, normal capillary refill , no pedal edema 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, no motor/sensory deficits , alert, normal mood/affect, normal reflexes, oriented x 3 Skin: normal color, warm/dry Hospital Course 57 y/o M who was admitted on 02/18 2018 with PE Acute pulmonary embolization, unprovoked, has had pe in past and right upper extremity DVT associated with picc line Was on heparin drip when he was admitted, switch to Lovenox bridging for Coumadin first dose 02/19/2018, Lovenox dose is 1 mg/kg every 12 hour heme/onc c/s recommends at least 6 months of full anticoagulation but likely life long, hematology also mentioned possible difficult to management of the concentration for the Lovenox because of obesity have checked anti-X a level 4 hour after 4thdose of Lovenox, checking was is this morning 4 a.m., it was 1.27 (normal range should 0.5 to 1), therefore it is therapeutic in current dose, patient has no signs of bleedings, will continue current dose 1 mg/kg every 12, and he will INR >2 Has told patient to have INR checked on 02/24/2018 in PCP 's office, then follow up instruction from PCP, patient current Coumadin dose is 7.5 mg p.o. daily anticoagulation likely need life long Increased abd girth: Advised outpt c-scope vs CT AP, last CT in 2014 unremarkable, chest CT with multiple small nodules ANJALI nodule: seen prior, stable, advised to follow-up with PCP 1st degree AV block: Is not new Chest pain: possibly related to PE, Chemical stress 2 weeks ago neg, does not appear to be ACS LUIS: CPAP as at home RLS: continue home meds Full code Heparin for DVT proph Instructions / Follow-Up you have Acute pulmonary embolization, Lovenox bridging for Coumadin Lovenox dose is 1 mg/kg every 12 hour, this need to be stop when INR>2 you need to have INR checked on 02/24/2018 in PCP 's office, then follow up instruction from PCP anticoagulation likely need life long you have Increased abdominal girth: Advised outpt colonoscope -scope vs CT AP, last CT with PCP you have multiple small nodules in your lung, need to follow up with pcp about this - you need to follow up with your primary care physician on Feb 24 2018, - take medication as instructed, never overdose or any misuse, or take with alcohol, because misuse of medicine may cause organ damage or , call me , or your primary care physician if have questions of discharge medicaitons. - call your primary care physician, or go to local emergency room if has any fever/chill, chest pain, shortness of breathing, nausea/vomiting/abdominal pain , facial droop/slurry speech/local weakness, or if has any questions. - fall precaution - diet as instructed Total Time Spent: Greater than 30 minutes This includes examination of the patient, discharge planning, medication reconciliation, and communication with other providers. Discharge Instructions Please refer to the electronic Patient Visit Report (Discharge Instructions) for additional information. Additional Copies To Praveen Kellogg
[2018-02-21] MEDS ORDERED: ENOXAPARIN 150 MG/1ML SYR SQ SCH (21:00)
== END 2018-02-21 13:00 | disposition home or self-care (01) | DRG 176 ==
LOC: C.EDB 17:35 → C.MED 18:28 → ENRESERV 19:26
PROVIDERS: ADMIT Family Medicine; ATTEND Hospitalist
DX: I26.99 Other pulmonary embolism without acute cor pulmonale (principal); Z68.41 Body mass index [BMI] 40.0-44.9, adult; R07.9 Chest pain, unspecified; I44.0 Atrioventricular block, first degree; G25.81 Restless legs syndrome; G47.33 Obstructive sleep apnea (adult) (pediatric); E66.9 Obesity, unspecified; Z86.2 Personal history of diseases of the blood and blood-forming organs and certain disorders involving the immune mechanism; Z87.891 Personal history of nicotine dependence; Z86.718 Personal history of other venous thrombosis and embolism; Z99.89 Dependence on other enabling machines and devices; Z99.81 Dependence on supplemental oxygen; Z83.2 Family history of diseases of the blood and blood-forming organs and certain disorders involving the immune mechanism; Z79.51 Long term (current) use of inhaled steroids; Z79.899 Other long term (current) drug therapy; Z88.8 Allergy status to other drugs, medicaments and biological substances

== ENCOUNTER → 2018-02-18 | Outpatient (CLI) | payer OTHER ==
[~2018-02-18] MED LIST changes: +ASCO100061 PO; +ASCO1CAP3 PO; +AZIT500T26 PO; +CHOL100027 PO; +CHOL1CAP57 PO; +CMD75 PO; +CYM60 PO; -DIAZ5TAB3 PO; -DOCU-94 PO; +GUAI1SOL5 PO; +GUAI1TAB55 PO; -GUAIFENESIN 600 MG TABCR PO PRN; +IBUP-103 PO; +IPRA-64 INH; -LSN/2025 PO; +LSX20 PO; +LVNIS150 SQ; +OPTIRAY 320 IV PRN; +OXGN; -OXYC-643 PO; +POTA10TA79 PO; +PRD20 PO; +ROPI3TAB PO; +ROPI3TAB2 PO; +SYMIN160 INH; +TIOT1AER2 INH; +VNTHFA/IN INH
--- NOTE | 2018-02-18 12:06 | DIAGNOSTIC IMAGING REPORT ---
CHEST CTA for PULMONARY ARTERIES CT DOSE: 760.90 mGy.cm HISTORY: Short of breath. TECHNIQUE: Multiaxial CT images of the chest were performed following the intravenous administration of contrast to evaluate the pulmonary arteries. Maximal intensity projection images were also obtained. A dose lowering technique was utilized adhering to the principles of ALARA. COMPARISON STUDY: Chest 10/14/2017. FINDINGS: Normal caliber thoracic aorta with no evidence for dissection. There is an aberrant right subclavian artery. The heart is normal in size. No pleural or pericardial effusions. There is a single small filling defect seen within a subsegmental branch of the right lower lobe on images 139 and 140. This is consistent with a pulmonary embolus. Remaining pulmonary arteries are patent. Mild hepatic steatosis. The visualized spleen and adrenal glands are unremarkable. No mediastinal or hilar lymphadenopathy. Normal esophagus. Old, healed bilateral rib fractures. No pneumothorax. The central airways are patent. A 4 mm subpleural nodule within the left upper lobe on image 155. No focal lung consolidations to suggest pneumonia. Punctate calcified granuloma within the right upper lobe. Mild central bronchial wall thickening. IMPRESSION: 1. A single subsegmental pulmonary embolus seen within the right lower lobe. 2. A 4 mm subpleural nodule within the left upper lobe. Please refer to the chart below for recommended follow-up. 3. Mild central bronchial wall thickening. 4. Additional findings as described above. 5. These findings were called/faxed to the referring physician's office following dictation. Please refer to below summary of Fleischner criteria recommendations for follow-up of incidental CT nodules (Juan Manuel Espinoza, Guidelines for management of small pulmonary nodules detected on CT scans: A statement from the Fleischner Society, Radiology 237: [id number].) SOLID NODULES Solitary nodule size: <6 mm * Low risk patients: no follow-up needed * high risk patients: optional CT at 12 months Solitary nodule size: 6-8 mm * Low risk patients: follow-up at 6-12 months, then consider further follow-up at 18-24 months * high risk patients: initial follow-up CT at 6-12 months and then at 18-24 months if no change Solitary nodule size: >8 mm * either low or high risk patients - consider follow-up CT at 3 months, and/or CT-PET, and/or biopsy Multiple nodules size: <6 mm * Low risk patients: no routine follow-up * high risk patients: optional CT at 12 months Multiple nodules size: 6-8 mm * Low risk patients: follow-up at 3-6 months, then consider further follow-up at 18-24 months * high risk patients: follow-up at 3-6 months, then at 18-24 months if no change Multiple nodules size: >8 mm * Low risk patients: follow-up at 3-6 months, then consider further follow-up at 18-24 months * high risk patients: follow-up at 3-6 months, then at 18-24 months if no change Note: newly detected indeterminate nodule in persons 35 years of age or older. * Low risk patients: minimal or absent history of smoking and/or other known risk factors * high risk patients: history of smoking or of other known risk factors (e.g. first degree relative with lung cancer, or exposure to asbestos, radon, uranium) * if a nodule up to 8 mm is partly solid or is ground glass further follow-up is required after 24 months to exclude possible slow growing adenocarcinoma (TIMBO) SUBSOLID NODULES Solitary pure ground-glass nodule * nodule size <6 mm - no CT follow-up required * nodule size >=6 mm - follow-up CT at 6-12 months, then every 2 years until 5 years Solitary part-solid nodule * nodule size <6 mm - no CT follow-up required * nodule size >=6 mm - follow-up CT at 3-6 months. If unchanged, and solid component remains <6 mm, then annual follow-up for 5 years Multiple subsolid nodules * nodule size <6 mm - follow-up CT at 3-6 months, consider further follow-up at 2 and 4 years if stable * nodule size >=6 mm - follow-up CT at 3-6 months, subsequent management based on the most suspicious nodule(s) Electronically signed by: Jonathan Salazar M.D. 02/18/2018 12:04 PM Dictated Date/Time: 02/18/2018 11:48 AM
== END | disposition home or self-care (01) ==
LOC: C.CTS 11:26
PROVIDERS: ATTEND Physician Assistant
DX: R06.02 Shortness of breath (principal); I26.99 Other pulmonary embolism without acute cor pulmonale; R91.8 Other nonspecific abnormal finding of lung field